=== PATIENT | male | born 1950 | race Caucasian/White ===

== ENCOUNTER 2017-10-01 03:17 | Inpatient (IN) ==
[2017-10-01] MEDS ORDERED: MORPHINE 4 MG/1 ML VIAL IV STA (05:04)
[2017-10-01] MEDS ORDERED: ONDANSETRON 4 MG/2 ML VIAL IV STA (05:04)
[2017-10-01] MEDS ORDERED: MORPHINE 10 MG/1 ML VIAL ONE (05:54)
[2017-10-01 05:58] LABS: Basophils % 0.5 % (0.0-0.8); Immature Granulocytes % 0.5 %; Immature Granulocytes Absolute 0.01 #; Lymphocytes # 0.4 10*3/uL (1.4-4.0); Lymphocytes % 17.6 % (21.2-54.2); Mean Corpuscular HGB Conc 34.2 GM/DL (32-36); Mean Corpuscular Hemoglobin 30 PG (27-34); Mean Corpuscular Volume 87.8 FL (87-102); Mean Platelet Volume 10.3 FL (9.6-12.0); Monocytes # 0.3 10*3/uL (0.11-0.8); Monocytes % 14.8 % (1.7-12.7); Neutrophils # 1.4 10*3/uL (1.4-7.4); Neutrophils % 66.6 % (38.7-73.9); Platelet Count 103 T/CUMM (130-400); Red Blood Count 4.33 MC/CUMM (3.8-5.5); Red Cell Distribution Width 13.1 % (9.3-17.3); White Blood Count 2.2 T/CUMM (4-12)
[2017-10-01 06:32] LABS: Band Neutrophils 5 % (0-10); Hypochromasia 1+; Lymphocytes 18 % (20-55); Ovalocytes Slight; Platelet Estimate Decreased; Segmented Neutrophils 65 % (50-85); Total Cells Counted 100
[2017-10-01 06:47] LABS: Alanine Aminotransferase 12 U/L (16-61); Albumin 3.1 G/DL (3.4-5.0); Alkaline Phosphatase 94 U/L (45-117); Aspartate Amino Transferase 15 U/L (0-37); Blood Urea Nitrogen 11 MG/DL (7-18); Calcium 8.7 MG/DL (8.5-10.1); Glucose 125 MG/DL (74-106); Osmolality,Calculated 272.8 MOS/KG (273-304); Potassium 3.5 MMOL/L (3.5-5.1); Sodium 137 MMOL/L (136-145); Total Protein 7.2 G/DL (6.4-8.3); Troponin I Only < 0.015 NG/ML (0.00-0.045)
[2017-10-01] MEDS ORDERED: MORPHINE 4 MG/1 ML VIAL IV PRN (08:17)
[2017-10-01] MEDS ORDERED: PROMETHAZINE 25 MG TABLET PO PRN (09:00)
[2017-10-01] MEDS: PANTOPRAZOLE 40 MG VIAL IV SCH ×2 (10:18→19:37)
[2017-10-01] MEDS: MORPHINE ER 15 MG TABLET PO SCH ×2 (10:18→20:38)
[2017-10-01] MEDS: SODIUM CHLORIDE 0.45% 1,000 ML IV SCH ×2 (10:34→20:39)
[2017-10-01 11:23] LABS: Folate 7.6 NG/ML (5.4-24.0); Vitamin B12 265 PG/ML (211-911)
[2017-10-01 11:25] LABS: Basophils % 0.5 % (0.0-0.8); Hematocrit 36.9 VOL% (42.0-52.0); Hemoglobin 12.7 GM/DL (14.0-18.0); Lymphocytes # 0.4 10*3/uL (1.4-4.0); Lymphocytes % 18.4 % (21.2-54.2); Mean Corpuscular HGB Conc 34.4 GM/DL (32-36); Mean Corpuscular Hemoglobin 30 PG (27-34); Mean Corpuscular Volume 88.3 FL (87-102); Mean Platelet Volume 10.2 FL (9.6-12.0); Monocytes # 0.3 10*3/uL (0.11-0.8); Monocytes % 14.9 % (1.7-12.7); Neutrophils # 1.3 10*3/uL (1.4-7.4); Neutrophils % 66.2 % (38.7-73.9); Platelet Count 108 T/CUMM (130-400); Red Blood Count 4.18 MC/CUMM (3.8-5.5); Red Cell Distribution Width 13.5 % (9.3-17.3)
[2017-10-01 12:38] LABS: Sedimentation Rate-Westergren 92 MM/HR (0-20)
[2017-10-01 12:54] LABS: Hemoglobin A1 (Alkaline) 97.5 % (96.5-98.5); Hemoglobin A2 (Alkaline) 2.5 % (1.5-3.5)
[2017-10-01] MEDS: ONDANSETRON 4 MG/2 ML VIAL IV PRN ×2 (13:39→19:36)
[2017-10-02 00:21] LABS: Apearance,Urine Slightly Hazy (Clear); Bilirubin,Urine Negative (Negative); Blood, Urine Small mg/dL (Negative); Glucose,Urine (UA) Negative (Negative); Ketones,Urine 5 mg/dL (Negative); Mucus,Urine Occasional /LPF (Occasional); Nitrite,Urine Negative (Negative); Protein,Urine 30 MG/DL; RBC,Urine <1 /HPF (0-4); Urine Color Amber (Yellow); Urine Specific Gravity 1.036 (1.001-1.035); Urine Urobilinogen < 2.0 EU/DL (0.2-1.0)
[2017-10-02 00:37] LABS: Barbiturates Screen,Urine Negative (Negative); Benzodiazepines Screen,Urine Negative (Negative); Cannabinoid Screen,Urine Negative (Negative); Opiate Screen,Urine Positive (Negative); Phencyclidine Screen,Urine Negative (Negative)
[2017-10-02] MEDS: ONDANSETRON 4 MG/2 ML VIAL IV PRN (06:09)
[2017-10-02] MEDS: HYDROmorphone 2 MG/1 ML VIAL IV PRN ×2 (06:10→14:48)
[2017-10-02] MEDS: SODIUM CHLORIDE 0.45% 1,000 ML IV SCH (06:11)
[2017-10-02 06:17] LABS: Eosinophils % 0.5 % (0.00-10.9); Hematocrit 31.3 VOL% (42.0-52.0); Hemoglobin 10.3 GM/DL (14.0-18.0); Lymphocytes # 0.4 10*3/uL (1.4-4.0); Lymphocytes % 21.5 % (21.2-54.2); Mean Corpuscular HGB Conc 32.9 GM/DL (32-36); Mean Corpuscular Hemoglobin 30 PG (27-34); Mean Corpuscular Volume 91.3 FL (87-102); Mean Platelet Volume 10.9 FL (9.6-12.0); Monocytes # 0.3 10*3/uL (0.11-0.8); Monocytes % 15.9 % (1.7-12.7); Neutrophils # 1.2 10*3/uL (1.4-7.4); Neutrophils % 62.1 % (38.7-73.9); Platelet Count 92 T/CUMM (130-400); Red Blood Count 3.43 MC/CUMM (3.8-5.5); Red Cell Distribution Width 13.4 % (9.3-17.3)
[2017-10-02 06:35] LABS: Hypochromasia 1+; Microcytosis 1+; Platelet Estimate Decreased
[2017-10-02 07:06] LABS: Calcium 7.7 MG/DL (8.5-10.1); Osmolality,Calculated 274.7 MOS/KG (273-304); Potassium 3.8 MMOL/L (3.5-5.1)
[2017-10-02 07:14] LABS: Risk Ratio 4.09; VLDL CHOLESTEROL 19.2 MG/DL
[2017-10-02] MEDS ORDERED: BUDESONIDE 0.5 MG/2 ML NEB RESP TX SCH (07:50)
[2017-10-02] MEDS ORDERED: LIDOCAINE 1% 5 ML VIAL ONE (09:00)
[2017-10-02] MEDS: MORPHINE ER 15 MG TABLET PO SCH ×2 (09:00→20:38)
[2017-10-02] MEDS ORDERED: PROPOFOL 200 MG/20 ML VIAL IV ONE (09:00)
[2017-10-02] MEDS: PANTOPRAZOLE 40 MG VIAL IV SCH ×2 (10:02→20:39)
[2017-10-02] MEDS: ALBUTEROL/IPRATROPIUM 3 ML NEB RESP TX PRN (20:38)
[2017-10-02] MEDS: IRON (CARBONYL) 45 MG TABLET PO SCH (20:38)
[2017-10-03] MEDS: ALBUTEROL/IPRATROPIUM 3 ML NEB RESP TX PRN (03:12)
[2017-10-03] MEDS: SODIUM CHLORIDE 0.45% 1,000 ML IV SCH (03:25)
[2017-10-03] MEDS: PANTOPRAZOLE 40 MG VIAL IV SCH (10:16)
[2017-10-03] MEDS: IRON (CARBONYL) 45 MG TABLET PO SCH (10:16)
[2017-10-03] MEDS: MORPHINE ER 15 MG TABLET PO SCH (10:24)
[2017-10-03 11:57] VITALS: BP 140/80
== END 2017-10-03 12:56 | disposition home or self-care (01) | DRG 380 ==
LOC: EDUNIT# → N.ED 03:17 → N.EDINP 07:56 → N.3E 09:31
PROVIDERS: ADMIT Internal Medicine; ATTEND Internal Medicine

== ENCOUNTER 2017-11-26 11:44 | Inpatient (IN) ==
[2017-12-04 12:12] VITALS: BP 109/68
== END 2017-12-04 15:10 | disposition home or self-care (01) | DRG 808 ==
LOC: N.2E 14:22 → SUATTDRO 14:22 → N.2E 12-02 07:24
PROVIDERS: ADMIT Internal Medicine; ATTEND Internal Medicine

== ENCOUNTER 2018-05-29 18:37 | Inpatient (IN) ==
[2018-05-29] MEDS ORDERED: SODIUM CHLORIDE 0.9% 1,000 ML IV STA ×2 (19:44→21:50)
[2018-05-29] MEDS ORDERED: CEFEPIME 2,000 MG in SODIUM CHLORIDE 0.9% 100 ML IV STA (20:43)
[2018-05-29] MEDS ORDERED: VANCOMYCIN INJ 1,000 MG in SODIUM CHLORIDE 0.9% 250 ML IV STA (20:44)
[2018-05-29 20:49] LABS: Basophils % 0.1 % (0.0-0.8); Hematocrit 37.7 VOL% (42.0-52.0); Hemoglobin 12.1 GM/DL (14.0-18.0); Immature Granulocytes % 0.7 %; Lymphocytes # 0.3 10*3/uL (1.4-4.0); Lymphocytes % 1.9 % (21.2-54.2); Mean Corpuscular HGB Conc 32.1 GM/DL (32-36); Mean Corpuscular Hemoglobin 28 PG (27-34); Mean Corpuscular Volume 88.3 FL (87-102); Monocytes # 0.3 10*3/uL (0.11-0.8); Monocytes % 1.9 % (1.7-12.7); Neutrophils # 13.5 10*3/uL (1.4-7.4); Neutrophils % 95.4 % (38.7-73.9); Platelet Count 186 T/CUMM (130-400); Red Blood Count 4.27 MC/CUMM (3.8-5.5); Red Cell Distribution Width 14.1 % (9.3-17.3); White Blood Count 14.2 T/CUMM (4-12)
[2018-05-29 20:58] LABS: INR 1.1; PT Patient Result 11.6 SECS; Partial Thromboplastin Time 32.9 SECS (0-40)
[2018-05-29 21:09] LABS: Albumin 2.3 G/DL (3.4-5.0); Bilirubin,Total 1.8 MG/DL (0.2-1.0); Calcium 7.9 MG/DL (8.5-10.1); Osmolality,Calculated 277.5 MOS/KG (273-304); Potassium 5.3 MMOL/L (3.5-5.1); Total Protein 6.1 G/DL (6.4-8.3)
[2018-05-29 21:48] LABS: Band Neutrophils 31 % (0-10); Lymphocytes 2 % (20-55); Platelet Estimate Normal; Segmented Neutrophils 66 % (50-85)
[2018-05-29 21:49] LABS: Anisocytosis Slight; Macrocytosis Slight
[2018-05-29 21:50] LABS: Ovalocytes Few; Tear Drop Cells Few
[2018-05-29 21:52] LABS: Polychromasia Few; Total Cells Counted 100
[2018-05-29 22:08] LABS: Apearance,Urine CLOUDY (Clear); Bacteria,Urine Occasional /HPF (Few); Bilirubin,Urine Negative (Negative); Blood, Urine Large mg/dL (Negative); Glucose,Urine (UA) Negative (Negative); Hyaline Casts,Urine 55 /LPF (0-3); Ketones,Urine Negative (Negative); Mucus,Urine Occasional /LPF (Occasional); Nitrite,Urine Negative (Negative); Protein,Urine 30 MG/DL; RBC,Urine 3 /HPF (0-4); Squamous Epithelial Cell,Urine Occasional /HPF (0-10); Urine Color Amber (Yellow); Urine Specific Gravity 1.018 (1.001-1.035); Urine Urobilinogen < 2.0 EU/DL (0.2-1.0); WBC,Urine 4 /HPF (0-6)
[2018-05-29 22:16] LABS: Barbiturates Screen,Urine Negative (Negative); Benzodiazepines Screen,Urine Negative (Negative); Cannabinoid Screen,Urine Negative (Negative); Opiate Screen,Urine Positive (Negative); Phencyclidine Screen,Urine Negative (Negative)
[2018-05-29] MEDS ORDERED: ALBUTEROL 2.5 MG/3 ML NEB RESP TX PRN (22:55)
[2018-05-29] MEDS ORDERED: methylPREDNISolone SOD SUC 40 MG/1 ML VIAL IV SCH (23:00)
[2018-05-30] MEDS ORDERED: DEXTROSE 50% 25 GM/50 ML VIAL IV STA (00:26)
[2018-05-30] MEDS ORDERED: DEXTROSE 50% 25 GM/50 ML SYRINGE IV ONE (00:30)
[2018-05-30] MEDS: PIPERACILLIN/TAZOBACTAM 3,375 MG in SODIUM CHLORIDE 0.9% 100 ML IV SCH ×2 (01:32→12:46)
[2018-05-30] MEDS: MORPHINE ER 15 MG TABLET PO SCH ×3 (01:32→21:23)
[2018-05-30] MEDS: LEVOFLOXACIN INJ 750 MG in PREMIX 1 EACH IV SCH (01:32)
[2018-05-30] MEDS: DEXTROSE 5% NACL 0.45% 1,000 ML IV SCH ×2 (01:33→15:14)
[2018-05-30] MEDS: ALBUTEROL/IPRATROPIUM 3 ML NEB RESP TX SCH ×4 (02:20→19:13)
[2018-05-30 07:08] LABS: Basophils % 0.1 % (0.0-0.8); Hematocrit 32.6 VOL% (42.0-52.0); Hemoglobin 10.6 GM/DL (14.0-18.0); Immature Granulocytes % 0.4 %; Immature Granulocytes Absolute 0.04 #; Lymphocytes # 0.1 10*3/uL (1.4-4.0); Lymphocytes % 1.3 % (21.2-54.2); Mean Corpuscular HGB Conc 32.5 GM/DL (32-36); Mean Corpuscular Hemoglobin 29 PG (27-34); Mean Corpuscular Volume 89.1 FL (87-102); Mean Platelet Volume 10.5 FL (9.6-12.0); Monocytes # 0.2 10*3/uL (0.11-0.8); Neutrophils # 9.1 10*3/uL (1.4-7.4); Neutrophils % 96.2 % (38.7-73.9); Platelet Count 136 T/CUMM (130-400); Red Blood Count 3.66 MC/CUMM (3.8-5.5); Red Cell Distribution Width 14.1 % (9.3-17.3); White Blood Count 9.5 T/CUMM (4-12)
[2018-05-30 07:27] LABS: Albumin 1.7 G/DL (3.4-5.0); Bilirubin,Total 1.1 MG/DL (0.2-1.0); Calcium 7.6 MG/DL (8.5-10.1); Osmolality,Calculated 272.5 MOS/KG (273-304); Potassium 5.2 MMOL/L (3.5-5.1); Total Protein 5.6 G/DL (6.4-8.3)
[2018-05-30 07:28] LABS: Band Neutrophils 54 % (0-10); Platelet Estimate Adequate; Segmented Neutrophils 45 % (50-85); Total Cells Counted 100
[2018-05-30 07:29] LABS: Anisocytosis 1+
[2018-05-30] MEDS: PANTOPRAZOLE 40 MG TABLET PO SCH (09:06)
[2018-05-30] MEDS: ENOXAPARIN 30 MG/0.3 ML SYRINGE SUBCUT SCH (09:07)
[2018-05-30] MEDS: methylPREDNISolone SOD SUC 40 MG/1 ML VIAL IV SCH ×2 (09:08→16:29)
[2018-05-31] MEDS: ALBUTEROL/IPRATROPIUM 3 ML NEB RESP TX SCH ×5 (00:59→23:51)
[2018-05-31] MEDS: PIPERACILLIN/TAZOBACTAM 3,375 MG in SODIUM CHLORIDE 0.9% 100 ML IV SCH ×2 (01:46→14:58)
[2018-05-31] MEDS: methylPREDNISolone SOD SUC 40 MG/1 ML VIAL IV SCH ×3 (02:00→16:35)
[2018-05-31] MEDS: PANTOPRAZOLE 40 MG TABLET PO SCH (08:51)
[2018-05-31] MEDS: ENOXAPARIN 30 MG/0.3 ML SYRINGE SUBCUT SCH (08:51)
[2018-05-31] MEDS: MORPHINE ER 15 MG TABLET PO SCH ×2 (08:51→21:27)
[2018-05-31] MEDS: ONDANSETRON 4 MG/2 ML VIAL IV PRN (17:37)
[2018-05-31] MEDS: MELATONIN 3 MG TABLET PO SCH (21:27)
[2018-05-31] MEDS: DEXTROSE 5% NACL 0.45% 1,000 ML IV SCH (22:43)
[2018-05-31] MEDS: LEVOFLOXACIN INJ 750 MG in PREMIX 1 EACH IV SCH (23:02)
[2018-06-01] MEDS: PIPERACILLIN/TAZOBACTAM 3,375 MG in SODIUM CHLORIDE 0.9% 100 ML IV SCH ×2 (01:20→12:34)
[2018-06-01] MEDS: methylPREDNISolone SOD SUC 40 MG/1 ML VIAL IV SCH ×3 (01:20→18:23)
[2018-06-01] MEDS: DEXTROSE 5% NACL 0.45% 1,000 ML IV SCH ×2 (01:24→21:09)
[2018-06-01] MEDS: ALBUTEROL/IPRATROPIUM 3 ML NEB RESP TX SCH ×3 (06:59→19:39)
[2018-06-01] MEDS: PANTOPRAZOLE 40 MG TABLET PO SCH (09:16)
[2018-06-01] MEDS: MORPHINE ER 15 MG TABLET PO SCH ×2 (09:16→21:05)
[2018-06-01] MEDS: ENOXAPARIN 30 MG/0.3 ML SYRINGE SUBCUT SCH (09:17)
[2018-06-01] MEDS: MELATONIN 3 MG TABLET PO SCH (21:05)
[2018-06-02] MEDS: ALBUTEROL/IPRATROPIUM 3 ML NEB RESP TX SCH ×4 (00:03→20:19)
[2018-06-02] MEDS: PIPERACILLIN/TAZOBACTAM 3,375 MG in SODIUM CHLORIDE 0.9% 100 ML IV SCH ×2 (01:31→13:44)
[2018-06-02] MEDS: methylPREDNISolone SOD SUC 40 MG/1 ML VIAL IV SCH ×3 (01:31→18:48)
[2018-06-02] MEDS: ENOXAPARIN 30 MG/0.3 ML SYRINGE SUBCUT SCH (09:18)
[2018-06-02] MEDS: PANTOPRAZOLE 40 MG TABLET PO SCH (09:18)
[2018-06-02] MEDS: MORPHINE ER 15 MG TABLET PO SCH ×2 (09:18→20:12)
[2018-06-02] MEDS: DEXTROSE 5% NACL 0.45% 1,000 ML IV SCH (13:26)
[2018-06-02] MEDS: MELATONIN 3 MG TABLET PO SCH (20:12)
[2018-06-03] MEDS: DEXTROSE 5% NACL 0.45% 1,000 ML IV SCH ×2 (00:13→15:36)
[2018-06-03] MEDS: methylPREDNISolone SOD SUC 40 MG/1 ML VIAL IV SCH ×3 (00:14→16:53)
[2018-06-03] MEDS: LEVOFLOXACIN INJ 750 MG in PREMIX 1 EACH IV SCH (00:17)
[2018-06-03] MEDS: PIPERACILLIN/TAZOBACTAM 3,375 MG in SODIUM CHLORIDE 0.9% 100 ML IV SCH ×2 (02:08→13:07)
[2018-06-03] MEDS: ALBUTEROL/IPRATROPIUM 3 ML NEB RESP TX SCH ×4 (02:15→19:01)
[2018-06-03] MEDS ORDERED: TUBERCULIN SKIN TEST 0.1 ML SYRINGE INTRADERM ONE (09:00)
[2018-06-03] MEDS: MORPHINE ER 15 MG TABLET PO SCH ×2 (09:23→20:04)
[2018-06-03] MEDS: ENOXAPARIN 30 MG/0.3 ML SYRINGE SUBCUT SCH (09:24)
[2018-06-03] MEDS: PANTOPRAZOLE 40 MG TABLET PO SCH (09:24)
[2018-06-03] MEDS ORDERED: NYSTATIN 500,000 UNIT/5 ML UDCUP SWISH/SWAL SCH (17:00)
[2018-06-03] MEDS: NYSTATIN 500,000 UNIT/5 ML UDCUP SWISH/SWAL SCH ×2 (17:24→23:16)
[2018-06-03] MEDS: MELATONIN 3 MG TABLET PO SCH (20:04)
[2018-06-03] MEDS: BENZOCAINE/MENTHOL LOZENGE 18/BOX PO PRN (22:47)
[2018-06-04] MEDS: ALBUTEROL/IPRATROPIUM 3 ML NEB RESP TX SCH ×4 (00:33→19:06)
[2018-06-04] MEDS: PIPERACILLIN/TAZOBACTAM 3,375 MG in SODIUM CHLORIDE 0.9% 100 ML IV SCH ×2 (01:45→17:00)
[2018-06-04] MEDS: methylPREDNISolone SOD SUC 40 MG/1 ML VIAL IV SCH ×3 (01:45→17:00)
[2018-06-04] MEDS: BENZOCAINE/MENTHOL LOZENGE 18/BOX PO PRN ×2 (05:15→09:38)
[2018-06-04] MEDS: ENOXAPARIN 30 MG/0.3 ML SYRINGE SUBCUT SCH (09:30)
[2018-06-04] MEDS: MORPHINE ER 15 MG TABLET PO SCH ×2 (09:30→21:33)
[2018-06-04] MEDS: PANTOPRAZOLE 40 MG TABLET PO SCH (09:31)
[2018-06-04] MEDS ORDERED: NYSTATIN 500,000 UNIT/5 ML UDCUP SWISH/SWAL SCH (13:00)
[2018-06-04] MEDS: NYSTATIN 500,000 UNIT/5 ML UDCUP SWISH/SWAL SCH ×3 (16:48→23:08)
[2018-06-04] MEDS: DEXTROSE 5% NACL 0.45% 1,000 ML IV SCH (17:02)
[2018-06-04] MEDS: MELATONIN 3 MG TABLET PO SCH (21:26)
[2018-06-05] MEDS: ALBUTEROL/IPRATROPIUM 3 ML NEB RESP TX SCH ×5 (00:35→23:52)
[2018-06-05] MEDS: LEVOFLOXACIN INJ 750 MG in PREMIX 1 EACH IV SCH (01:00)
[2018-06-05] MEDS: methylPREDNISolone SOD SUC 40 MG/1 ML VIAL IV SCH ×3 (02:18→19:23)
[2018-06-05] MEDS: PIPERACILLIN/TAZOBACTAM 3,375 MG in SODIUM CHLORIDE 0.9% 100 ML IV SCH ×2 (02:21→16:07)
[2018-06-05] MEDS: BENZOCAINE/MENTHOL LOZENGE 18/BOX PO PRN (02:24)
[2018-06-05 05:54] LABS: Basophils % 0.2 % (0.0-0.8); Hematocrit 28.4 VOL% (42.0-52.0); Hemoglobin 8.9 GM/DL (14.0-18.0); Immature Granulocytes % 0.5 %; Immature Granulocytes Absolute 0.03 #; Lymphocytes # 0.1 10*3/uL (1.4-4.0); Lymphocytes % 2.2 % (21.2-54.2); Mean Corpuscular HGB Conc 31.3 GM/DL (32-36); Mean Corpuscular Hemoglobin 29 PG (27-34); Mean Corpuscular Volume 91.3 FL (87-102); Mean Platelet Volume 10.4 FL (9.6-12.0); Monocytes # 0.2 10*3/uL (0.11-0.8); Monocytes % 2.5 % (1.7-12.7); Neutrophils % 94.6 % (38.7-73.9); Platelet Count 89 T/CUMM (130-400); Red Blood Count 3.11 MC/CUMM (3.8-5.5); Red Cell Distribution Width 14.2 % (9.3-17.3); White Blood Count 6.4 T/CUMM (4-12)
[2018-06-05 06:26] LABS: Lymphocytes 1 % (20-55); Segmented Neutrophils 98 % (50-85); Total Cells Counted 100
[2018-06-05 06:27] LABS: Hypochromasia 1+; Microcytosis 1+
[2018-06-05 06:28] LABS: Platelet Estimate Decreased
[2018-06-05] MEDS: ONDANSETRON 4 MG/2 ML VIAL IV PRN ×3 (07:16→20:04)
[2018-06-05] MEDS ORDERED: ceFAZolin 1,000 MG in SYRINGE 1 EACH IV ONE (08:00)
[2018-06-05] MEDS ORDERED: MIDAZOLAM 10 MG/2 ML VIAL IV ONE (08:30)
[2018-06-05] MEDS ORDERED: fentaNYL 100 MCG/2 ML VIAL IV ONE (08:30)
[2018-06-05] MEDS ORDERED: HEPARIN/NACL 0.9% 2 UNITS/ML 2,000 ML IV ONE (12:50)
[2018-06-05] MEDS: NYSTATIN 500,000 UNIT/5 ML UDCUP SWISH/SWAL SCH ×3 (13:10→20:16)
[2018-06-05] MEDS: PANTOPRAZOLE 40 MG TABLET PO SCH (13:11)
[2018-06-05] MEDS: ENOXAPARIN 30 MG/0.3 ML SYRINGE SUBCUT SCH (13:11)
[2018-06-05] MEDS: MORPHINE ER 15 MG TABLET PO SCH ×2 (13:12→20:04)
[2018-06-05] MEDS: DEXTROSE 5% NACL 0.45% 1,000 ML IV SCH ×2 (13:12→23:27)
[2018-06-05] MEDS ORDERED: HEPARIN 5,000 UNIT/1 ML VIAL ONE (13:15)
[2018-06-05] MEDS ORDERED: fentaNYL 100 MCG/2 ML VIAL ONE (13:15)
[2018-06-05] MEDS ORDERED: MIDAZOLAM 2 MG/2 ML VIAL ONE (13:15)
[2018-06-05] MEDS ORDERED: ONDANSETRON 4 MG/2 ML VIAL ONE (14:45)
[2018-06-05] MEDS ORDERED: CLOPIDOGREL 75 MG TABLET PO ONE (15:19)
[2018-06-05 15:37] LABS: Apearance,Urine CLEAR (Clear); Bilirubin,Urine Negative (Negative); Blood, Urine Moderate mg/dL (Negative); Glucose,Urine (UA) Negative (Negative); Ketones,Urine Negative (Negative); Nitrite,Urine Negative (Negative); Protein,Urine Negative; Urine Color Yellow (Yellow); Urine Specific Gravity 1.023 (1.001-1.035); Urine Urobilinogen < 2.0 EU/DL (0.2-1.0); WBC,Urine 1 /HPF (0-6)
[2018-06-05] MEDS: MELATONIN 3 MG TABLET PO SCH (20:04)
[2018-06-06] MEDS: methylPREDNISolone SOD SUC 40 MG/1 ML VIAL IV SCH (01:45)
[2018-06-06] MEDS: PIPERACILLIN/TAZOBACTAM 3,375 MG in SODIUM CHLORIDE 0.9% 100 ML IV SCH (01:47)
[2018-06-06] MEDS: BENZOCAINE/MENTHOL LOZENGE 18/BOX PO PRN (05:37)
[2018-06-06 06:45] LABS: Calcium 7.9 MG/DL (8.5-10.1); Osmolality,Calculated 272.1 MOS/KG (273-304); Potassium 4.1 MMOL/L (3.5-5.1)
[2018-06-06] MEDS: ALBUTEROL/IPRATROPIUM 3 ML NEB RESP TX SCH ×3 (07:20→19:56)
[2018-06-06] MEDS ORDERED: LIDOCAINE 1% 20 ML VIAL ONE (09:36)
[2018-06-06] MEDS ORDERED: HEPARIN 5,000 UNIT/1 ML VIAL ONE (09:36)
[2018-06-06] MEDS ORDERED: THROMBIN TOPICAL (RECOMBINANT) 5,000 UNIT VIAL TOP ONE (09:36)
[2018-06-06] MEDS ORDERED: VANCOMYCIN 500 MG VIAL ONE (09:36)
[2018-06-06] MEDS: ENOXAPARIN 30 MG/0.3 ML SYRINGE SUBCUT SCH (09:39)
[2018-06-06] MEDS: PANTOPRAZOLE 40 MG TABLET PO SCH (09:40)
[2018-06-06] MEDS: MORPHINE ER 15 MG TABLET PO SCH (09:40)
[2018-06-06] MEDS: NYSTATIN 500,000 UNIT/5 ML UDCUP SWISH/SWAL SCH ×4 (09:40→23:10)
[2018-06-06] MEDS ORDERED: HEPARIN 10,000 UNIT/10 ML VIAL ONE (10:00)
[2018-06-06] MEDS ORDERED: ceFAZolin 1,000 MG VIAL ONE (10:38)
[2018-06-06] MEDS ORDERED: TISSUE ADHESIVE 1 EACH APPLICATOR TOP ONE (11:55)
[2018-06-06] MEDS: MEPERIDINE 25 MG/1 ML VIAL IV PRN ×2 (12:50→13:20)
[2018-06-06] MEDS ORDERED: HYDROmorphone 2 MG/1 ML VIAL IV PRN ×2 (12:50→12:57)
[2018-06-06] MEDS ORDERED: MEPERIDINE 25 MG/1 ML VIAL ONE ×2 (12:54→13:17)
[2018-06-06] MEDS ORDERED: ONDANSETRON 4 MG/2 ML VIAL ONE ×2 (12:54→13:40)
[2018-06-06] MEDS ORDERED: ONDANSETRON 4 MG/2 ML VIAL IV PRN (12:57)
[2018-06-06] MEDS ORDERED: PROMETHAZINE INJ 25 MG in SODIUM CHLORIDE 0.9% 50 ML IV PRN (12:57)
[2018-06-06] MEDS ORDERED: SEVOFLURANE 1 UNIT/15 MINUTE INH ONE (13:39)
[2018-06-06] MEDS ORDERED: PROPOFOL 200 MG/20 ML VIAL IV ONE (13:39)
[2018-06-06] MEDS ORDERED: KETOROLAC 30 MG/1 ML VIAL ONE (13:40)
[2018-06-06] MEDS ORDERED: PROTAMINE SULFATE 50 MG/5 ML VIAL IV ONE (13:40)
[2018-06-06] MEDS ORDERED: PHENYLEPHRINE 1 MG/10 ML SYRINGE IV ONE (13:40)
[2018-06-06] MEDS ORDERED: ETOMIDATE 40 MG/20 ML VIAL IV ONE (13:40)
[2018-06-06] MEDS ORDERED: fentaNYL 100 MCG/2 ML VIAL ONE (13:40)
[2018-06-06] MEDS ORDERED: LACTATED RINGERS 1,000 ML IV ONE (13:40)
[2018-06-06] MEDS ORDERED: ceFAZolin 1,000 MG in SYRINGE 1 EACH IV ONE (15:15)
[2018-06-06] MEDS: KETOROLAC 10 MG TABLET PO SCH (17:26)
[2018-06-06] MEDS: POTASSIUM CHLORIDE INJ 10 MEQ in LACTATED RINGERS 1,000 ML IV SCH (17:26)
[2018-06-06] MEDS: MELATONIN 3 MG TABLET PO SCH ×2 (19:28→23:10)
[2018-06-06] MEDS: DEXTROSE 5% NACL 0.45% 1,000 ML IV SCH (23:11)
[2018-06-07] MEDS: ALBUTEROL/IPRATROPIUM 3 ML NEB RESP TX SCH ×4 (00:47→19:15)
[2018-06-07] MEDS: KETOROLAC 10 MG TABLET PO SCH ×4 (01:56→18:03)
[2018-06-07] MEDS: HYDROmorphone 2 MG/1 ML VIAL IV PRN ×3 (03:19→20:10)
[2018-06-07] MEDS: ONDANSETRON 4 MG/2 ML VIAL IV PRN ×2 (03:20→20:09)
[2018-06-07 06:08] LABS: Eosinophils % 0.4 % (0.00-10.9); Hematocrit 26.4 VOL% (42.0-52.0); Hemoglobin 8.1 GM/DL (14.0-18.0); Immature Granulocytes % 0.8 %; Immature Granulocytes Absolute 0.02 #; Lymphocytes # 0.3 10*3/uL (1.4-4.0); Lymphocytes % 9.8 % (21.2-54.2); Mean Corpuscular HGB Conc 30.7 GM/DL (32-36); Mean Corpuscular Hemoglobin 29 PG (27-34); Mean Corpuscular Volume 93.3 FL (87-102); Mean Platelet Volume 10.3 FL (9.6-12.0); Monocytes # 0.1 10*3/uL (0.11-0.8); Neutrophils # 2.3 10*3/uL (1.4-7.4); Red Blood Count 2.83 MC/CUMM (3.8-5.5); Red Cell Distribution Width 13.7 % (9.3-17.3); White Blood Count 2.7 T/CUMM (4-12)
[2018-06-07 06:13] LABS: Platelet Count 80 T/CUMM (130-400)
[2018-06-07 06:29] LABS: Calcium 7.5 MG/DL (8.5-10.1)
[2018-06-07 06:44] LABS: Hypochromasia 1+; Microcytosis Slight; Ovalocytes Slight; Platelet Estimate Decreased
[2018-06-07 07:49] LABS: HIV Antigen/Antibody Result Nonreactive (Nonreactive)
[2018-06-07] MEDS: PANTOPRAZOLE 40 MG TABLET PO SCH (09:17)
[2018-06-07] MEDS: POTASSIUM CHLORIDE INJ 10 MEQ in LACTATED RINGERS 1,000 ML IV SCH (09:18)
[2018-06-07] MEDS: CLOTRIMAZOLE 10 MG TROCHE PO SCH ×4 (09:18→20:01)
[2018-06-07] MEDS: ENOXAPARIN 30 MG/0.3 ML SYRINGE SUBCUT SCH (09:19)
[2018-06-07 16:14] LABS: Hematocrit 26.2 VOL% (42.0-52.0); Hemoglobin 8.1 GM/DL (14.0-18.0); Immature Granulocytes % 0.3 %; Immature Granulocytes Absolute 0.01 #; Lymphocytes # 0.2 10*3/uL (1.4-4.0); Mean Corpuscular HGB Conc 30.9 GM/DL (32-36); Mean Corpuscular Hemoglobin 29 PG (27-34); Mean Corpuscular Volume 92.3 FL (87-102); Mean Platelet Volume 10.3 FL (9.6-12.0); Monocytes # 0.1 10*3/uL (0.11-0.8); Monocytes % 3.4 % (1.7-12.7); Neutrophils # 2.6 10*3/uL (1.4-7.4); Neutrophils % 88.3 % (38.7-73.9); Red Blood Count 2.84 MC/CUMM (3.8-5.5); Red Cell Distribution Width 13.8 % (9.3-17.3)
[2018-06-07 16:17] LABS: Platelet Count 85 T/CUMM (130-400)
[2018-06-07] MEDS: MELATONIN 3 MG TABLET PO SCH (20:10)
[2018-06-07] MEDS: BENZOCAINE/MENTHOL LOZENGE 18/BOX PO PRN (20:11)
[2018-06-08] MEDS: ALBUTEROL/IPRATROPIUM 3 ML NEB RESP TX SCH ×4 (00:03→20:18)
[2018-06-08] MEDS: HYDROmorphone 2 MG/1 ML VIAL IV PRN (00:05)
[2018-06-08] MEDS: KETOROLAC 10 MG TABLET PO SCH ×4 (01:17→19:06)
[2018-06-08] MEDS: BENZOCAINE/MENTHOL LOZENGE 18/BOX PO PRN (04:38)
[2018-06-08] MEDS: CLOTRIMAZOLE 10 MG TROCHE PO SCH ×6 (05:18→21:59)
[2018-06-08] MEDS: PANTOPRAZOLE 40 MG TABLET PO SCH (08:29)
[2018-06-08] MEDS: ENOXAPARIN 30 MG/0.3 ML SYRINGE SUBCUT SCH (08:30)
[2018-06-08] MEDS ORDERED: FLUCONAZOLE INJ 200 MG in PREMIX 1 EACH IV ONE (08:34)
[2018-06-08] MEDS: MYLANTA/LIDO VISC/DIPH 300 ML BOTTLE SWISH/SWAL PRN ×2 (09:50→15:51)
[2018-06-08] MEDS: MELATONIN 3 MG TABLET PO SCH (20:10)
[2018-06-09] MEDS: KETOROLAC 10 MG TABLET PO SCH ×4 (00:21→17:42)
[2018-06-09] MEDS: ALBUTEROL/IPRATROPIUM 3 ML NEB RESP TX SCH ×4 (00:51→19:26)
[2018-06-09] MEDS: CLOTRIMAZOLE 10 MG TROCHE PO SCH ×8 (05:15→23:03)
[2018-06-09] MEDS: ENOXAPARIN 30 MG/0.3 ML SYRINGE SUBCUT SCH (08:15)
[2018-06-09] MEDS: PANTOPRAZOLE 40 MG TABLET PO SCH (08:15)
[2018-06-09] MEDS ORDERED: TRIAMCINOLONE 0.1% DENTAL PASTE 5 GM TUBE TOP PRN (13:07)
[2018-06-09] MEDS: MYLANTA/LIDO VISC/DIPH 300 ML BOTTLE SWISH/SWAL PRN (16:46)
[2018-06-09] MEDS: NYSTATIN 500,000 UNIT/5 ML UDCUP SWISH/SWAL SCH ×2 (16:53→23:03)
[2018-06-09] MEDS: MELATONIN 3 MG TABLET PO SCH (23:03)
[2018-06-10] MEDS: ALBUTEROL/IPRATROPIUM 3 ML NEB RESP TX SCH ×2 (00:10→07:15)
[2018-06-10] MEDS: KETOROLAC 10 MG TABLET PO SCH ×3 (01:32→11:10)
[2018-06-10] MEDS: CLOTRIMAZOLE 10 MG TROCHE PO SCH ×2 (05:26→09:28)
[2018-06-10 06:54] LABS: Free T4 (Free Thyroxine) 0.76 NG/DL (0.76-1.46); Thyroid Stimulating Hormone 9.5 uIU/ml (0.358-3.74)
[2018-06-10] MEDS: NYSTATIN 500,000 UNIT/5 ML UDCUP SWISH/SWAL SCH (08:05)
[2018-06-10] MEDS: PANTOPRAZOLE 40 MG TABLET PO SCH (08:16)
[2018-06-10] MEDS: ENOXAPARIN 30 MG/0.3 ML SYRINGE SUBCUT SCH (08:16)
[2018-06-10 08:24] VITALS: BP 111/61
[2018-06-10] MEDS ORDERED: CLOPIDOGREL 75 MG TABLET PO SCH (11:30)
== END 2018-06-10 12:11 | DRG 853 ==
LOC: N.ED 18:37 → N.EDINP 22:56 → SUATTDRO 22:56 → N.EDINP 05-30 00:48 → N.CC 05-30 00:59 → N.5E 05-30 15:30
PROVIDERS: ADMIT Hospitalist; ATTEND Internal Medicine

== ENCOUNTER 2018-06-13 16:32 | Inpatient (IN) ==
[2018-06-13] MEDS ORDERED: PANTOPRAZOLE 40 MG VIAL IV STA (17:08)
[2018-06-13] MEDS ORDERED: SODIUM CHLORIDE 0.9% 500 ML IV STA (17:08)
[2018-06-13 17:33] LABS: Eosinophils # 0.1 10*3/uL (0.0-0.87); Eosinophils % 4.1 % (0.00-10.9); Hematocrit 23.6 VOL% (42.0-52.0); Hemoglobin 7.4 GM/DL (14.0-18.0); Lymphocytes # 0.4 10*3/uL (1.4-4.0); Lymphocytes % 21.9 % (21.2-54.2); Mean Corpuscular HGB Conc 31.4 GM/DL (32-36); Mean Corpuscular Hemoglobin 29 PG (27-34); Mean Corpuscular Volume 91.5 FL (87-102); Mean Platelet Volume 9.9 FL (9.6-12.0); Monocytes # 0.1 10*3/uL (0.11-0.8); Monocytes % 7.1 % (1.7-12.7); Neutrophils # 1.3 10*3/uL (1.4-7.4); Neutrophils % 66.9 % (38.7-73.9); Platelet Count 175 T/CUMM (130-400); Red Blood Count 2.58 MC/CUMM (3.8-5.5); Red Cell Distribution Width 14.5 % (9.3-17.3)
[2018-06-13 17:45] LABS: Alanine Aminotransferase 16 U/L (16-61); Albumin 1.5 G/DL (3.4-5.0); Alkaline Phosphatase 117 U/L (45-117); Aspartate Amino Transferase 21 U/L (0-37); Bilirubin,Total < 0.39 MG/DL (0.2-1.0); Blood Urea Nitrogen 13 MG/DL (7-18); Calcium 7.2 MG/DL (8.5-10.1); Glucose 79 MG/DL (74-106); Potassium 4.1 MMOL/L (3.5-5.1); Sodium 136 MMOL/L (136-145); Total Protein 6.1 G/DL (6.4-8.3)
[2018-06-13 18:26] LABS: Anisocytosis Slight; Eosinophils 3 % (0-10); Lymphocytes 7 % (20-55); Microcytosis Slight; Segmented Neutrophils 86 % (50-85); Total Cells Counted 100
[2018-06-13 18:27] LABS: Hypochromasia 1+
[2018-06-13 18:28] LABS: Platelet Estimate Adequate
[2018-06-13] MEDS ORDERED: ACETAMINOPHEN 325 MG TABLET PO PRN (19:51)
[2018-06-13] MEDS ORDERED: SODIUM CHLORIDE 0.9% 1,000 ML IV PRN (20:02)
[2018-06-13 20:32] LABS: Apearance,Urine CLEAR (Clear); Bilirubin,Urine Negative (Negative); Blood, Urine Negative (Negative); Glucose,Urine (UA) Negative (Negative); Ketones,Urine Negative (Negative); Mucus,Urine Occasional /LPF (Occasional); Nitrite,Urine Negative (Negative); Protein,Urine Negative; RBC,Urine 1 /HPF (0-4); Squamous Epithelial Cell,Urine Occasional /HPF (0-10); Urine Color Yellow (Yellow); Urine Specific Gravity 1.015 (1.001-1.035); Urine Urobilinogen < 2.0 EU/DL (0.2-1.0); WBC,Urine 1 /HPF (0-6)
[2018-06-13] MEDS: PANTOPRAZOLE 40 MG VIAL IV SCH (22:05)
[2018-06-14 06:23] LABS: Hematocrit 32.4 VOL% (42.0-52.0); Hemoglobin 10.4 GM/DL (14.0-18.0)
[2018-06-14] MEDS: NYSTATIN 500,000 UNIT/5 ML UDCUP SWISH/SWAL SCH ×3 (08:32→16:10)
[2018-06-14] MEDS ORDERED: MORPHINE ER 15 MG TABLET PO SCH (09:00)
[2018-06-14] MEDS: PANTOPRAZOLE 40 MG VIAL IV SCH (10:12)
[2018-06-14 12:08] LABS: Hematocrit 31.1 VOL% (42.0-52.0)
[2018-06-14 18:17] VITALS: BP 135/64
== END 2018-06-14 17:00 | DRG 811 ==
LOC: EDBD → EDUNIT# → N.ED 16:32 → N.EDINP 19:51 → N.4E 21:00
PROVIDERS: ADMIT Family Medicine; ATTEND Family Medicine

== ENCOUNTER 2018-07-23 06:06 | Observation (INO) ==
[2018-07-23] MEDS ORDERED: ACETAMINOPHEN 325 MG TABLET PO PRN (08:09)
[2018-07-23] MEDS ORDERED: ALBUTEROL 2.5 MG/3 ML NEB RESP TX PRN (08:12)
[2018-07-23 08:47] LABS: Basophils % 0.3 % (0.0-0.8); Hematocrit 34.1 VOL% (42.0-52.0); Hemoglobin 10.6 GM/DL (14.0-18.0); Immature Granulocytes Absolute 0.03 #; Lymphocytes # 0.4 10*3/uL (1.4-4.0); Lymphocytes % 11.4 % (21.2-54.2); Mean Corpuscular HGB Conc 31.1 GM/DL (32-36); Mean Corpuscular Hemoglobin 29 PG (27-34); Mean Corpuscular Volume 94.5 FL (87-102); Mean Platelet Volume 9.2 FL (9.6-12.0); Monocytes # 0.2 10*3/uL (0.11-0.8); Monocytes % 6.2 % (1.7-12.7); Neutrophils # 2.5 10*3/uL (1.4-7.4); Neutrophils % 81.1 % (38.7-73.9); Platelet Count 212 T/CUMM (130-400); Red Blood Count 3.61 MC/CUMM (3.8-5.5); Red Cell Distribution Width 16.7 % (9.3-17.3); White Blood Count 3.1 T/CUMM (4-12)
[2018-07-23 09:08] LABS: Band Neutrophils 11 % (0-10); Lymphocytes 16 % (20-55); Platelet Estimate Adequate; Segmented Neutrophils 66 % (50-85); Total Cells Counted 100
[2018-07-23 09:09] LABS: Hypochromasia 1+; Microcytosis Slight
[2018-07-23 09:10] LABS: Albumin 2.2 G/DL (3.4-5.0); Bilirubin,Total 0.5 MG/DL (0.2-1.0); Calcium 9.5 MG/DL (8.5-10.1); Osmolality,Calculated 282.3 MOS/KG (273-304); Total Protein 7.7 G/DL (6.4-8.3)
[2018-07-23 09:17] LABS: Thyroid Stimulating Hormone 1.08 uIU/ml (0.358-3.74)
[2018-07-23] MEDS: methylPREDNISolone SOD SUC 125 MG/2 ML VIAL IV SCH ×2 (09:30→17:25)
[2018-07-23] MEDS ORDERED: MAGNESIUM HYDROXIDE SUSP 30 ML UDCUP PO PRN (09:32)
[2018-07-23] MEDS ORDERED: ALUMINUM/MAGNES/SIMETH MAX STR 30 ML UDCUP PO PRN (09:32)
[2018-07-23] MEDS ORDERED: MORPHINE 4 MG/1 ML VIAL IV PRN (09:32)
[2018-07-23] MEDS: PANTOPRAZOLE 40 MG TABLET PO SCH (09:33)
[2018-07-23] MEDS: LEVOFLOXACIN INJ 750 MG in PREMIX 1 EACH IV SCH (09:36)
[2018-07-23] MEDS ORDERED: CYCLOBENZAPRINE 10 MG TABLET PO PRN (09:38)
[2018-07-23 10:04] LABS: Amorphous Crystals,Urine Occasional /HPF (Few); Apearance,Urine CLOUDY (Clear); Bilirubin,Urine Negative (Negative); Blood, Urine Negative (Negative); Glucose,Urine (UA) Negative (Negative); Ketones,Urine 5 mg/dL (Negative); Mucus,Urine Occasional /LPF (Occasional); Nitrite,Urine Negative (Negative); Protein,Urine 30 MG/DL; Urine Color Yellow (Yellow); Urine Specific Gravity 1.025 (1.001-1.035); Urine Urobilinogen < 2.0 EU/DL (0.2-1.0)
[2018-07-23] MEDS: DOCUSATE/SENNA 50-8.6 MG TABLET PO SCH ×2 (10:05→20:14)
[2018-07-23] MEDS: ENOXAPARIN 40 MG/0.4 ML SYRINGE SUBCUT SCH (10:05)
[2018-07-23] MEDS ORDERED: PIPERACILLIN/TAZOBACTAM 3,375 MG in SODIUM CHLORIDE 0.9% 100 ML IV SCH (11:00)
[2018-07-23] MEDS: ARFORMOTEROL 15 MCG/2 ML NEB RESP TX SCH ×2 (12:21→19:09)
[2018-07-23] MEDS: ALBUTEROL/IPRATROPIUM 3 ML NEB RESP TX SCH ×2 (12:21→19:09)
[2018-07-23] MEDS: CLOPIDOGREL 75 MG TABLET PO SCH (17:26)
[2018-07-23] MEDS: BUDESONIDE 0.5 MG/2 ML NEB RESP TX SCH (19:09)
[2018-07-23] MEDS: MORPHINE ER 15 MG TABLET PO SCH (20:14)
[2018-07-24] MEDS: methylPREDNISolone SOD SUC 125 MG/2 ML VIAL IV SCH ×3 (00:50→18:21)
[2018-07-24] MEDS: ALBUTEROL/IPRATROPIUM 3 ML NEB RESP TX SCH ×4 (01:15→19:33)
[2018-07-24] MEDS: ARFORMOTEROL 15 MCG/2 ML NEB RESP TX SCH ×2 (07:10→19:33)
[2018-07-24] MEDS: BUDESONIDE 0.5 MG/2 ML NEB RESP TX SCH ×2 (07:20→19:33)
[2018-07-24] MEDS: DOCUSATE/SENNA 50-8.6 MG TABLET PO SCH ×2 (08:31→20:19)
[2018-07-24] MEDS: PANTOPRAZOLE 40 MG TABLET PO SCH (08:31)
[2018-07-24] MEDS: LEVOFLOXACIN INJ 750 MG in PREMIX 1 EACH IV SCH (08:32)
[2018-07-24] MEDS: MORPHINE ER 15 MG TABLET PO SCH ×2 (09:49→20:19)
[2018-07-24] MEDS: ENOXAPARIN 40 MG/0.4 ML SYRINGE SUBCUT SCH (09:50)
[2018-07-24] MEDS: CLOPIDOGREL 75 MG TABLET PO SCH (18:23)
[2018-07-25] MEDS: methylPREDNISolone SOD SUC 125 MG/2 ML VIAL IV SCH ×2 (00:25→09:17)
[2018-07-25] MEDS: ALBUTEROL/IPRATROPIUM 3 ML NEB RESP TX SCH ×2 (01:50→07:00)
[2018-07-25] MEDS: BUDESONIDE 0.5 MG/2 ML NEB RESP TX SCH (07:00)
[2018-07-25] MEDS: ARFORMOTEROL 15 MCG/2 ML NEB RESP TX SCH (07:00)
[2018-07-25] MEDS: LEVOFLOXACIN INJ 750 MG in PREMIX 1 EACH IV SCH (09:13)
[2018-07-25] MEDS: MORPHINE ER 15 MG TABLET PO SCH (09:16)
[2018-07-25] MEDS: PANTOPRAZOLE 40 MG TABLET PO SCH (09:16)
[2018-07-25] MEDS: DOCUSATE/SENNA 50-8.6 MG TABLET PO SCH (09:18)
[2018-07-25] MEDS: ENOXAPARIN 40 MG/0.4 ML SYRINGE SUBCUT SCH (09:18)
[2018-07-25 14:59] VITALS: BP 130/70
== END 2018-07-25 15:02 ==
LOC: N.2E 07:34 → INTOOBSV 07:34 → SUATTDRO 07:34
PROVIDERS: ADMIT Internal Medicine; ATTEND Internal Medicine

== ENCOUNTER 2018-08-21 21:58 | Inpatient (IN) ==
[2018-08-21] MEDS ORDERED: ONDANSETRON 4 MG/2 ML VIAL IV STA (22:54)
[2018-08-21] MEDS ORDERED: PIPERACILLIN/TAZOBACTAM 3,375 MG in SODIUM CHLORIDE 0.9% 100 ML IV STA (22:54)
[2018-08-21] MEDS ORDERED: methylPREDNISolone SOD SUC 125 MG/2 ML VIAL IV STA (22:54)
[2018-08-21] MEDS ORDERED: SODIUM CHLORIDE 0.9% 1,000 ML IV STA (22:54)
[2018-08-21] MEDS ORDERED: ALBUTEROL 2.5 MG/3 ML NEB RESP TX SCH (23:00)
[2018-08-21] MEDS ORDERED: VANCOMYCIN INJ 1,000 MG in SODIUM CHLORIDE 0.9% 250 ML IV STA (23:30)
[2018-08-22 00:39] LABS: Basophils % 0.5 % (0.0-0.8); Eosinophils % 0.1 % (0.00-10.9); Hemoglobin 10.2 GM/DL (14.0-18.0); Immature Granulocytes Absolute 0.08 #; Lymphocytes # 0.6 10*3/uL (1.4-4.0); Lymphocytes % 7.9 % (21.2-54.2); Mean Corpuscular HGB Conc 30.9 GM/DL (32-36); Mean Corpuscular Hemoglobin 30 PG (27-34); Mean Corpuscular Volume 97.9 FL (87-102); Monocytes # 0.3 10*3/uL (0.11-0.8); Monocytes % 3.8 % (1.7-12.7); Neutrophils % 86.7 % (38.7-73.9); Platelet Count 118 T/CUMM (130-400); Red Blood Count 3.37 MC/CUMM (3.8-5.5); Red Cell Distribution Width 17.2 % (9.3-17.3); White Blood Count 8.1 T/CUMM (4-12)
[2018-08-22] MEDS ORDERED: MORPHINE 4 MG/1 ML VIAL IV STA (00:49)
[2018-08-22] MEDS ORDERED: ONDANSETRON 4 MG/2 ML VIAL IV STA (00:49)
[2018-08-22 01:32] LABS: Alanine Aminotransferase 12 U/L (16-61); Albumin 1.8 G/DL (3.4-5.0); Alkaline Phosphatase 110 U/L (45-117); Aspartate Amino Transferase 24 U/L (0-37); Bilirubin,Total < 0.39 MG/DL (0.2-1.0); Blood Urea Nitrogen 35 MG/DL (7-18); Calcium 8.6 MG/DL (8.5-10.1); Glucose 104 MG/DL (74-106); Osmolality,Calculated 284.5 MOS/KG (273-304); Potassium 4.1 MMOL/L (3.5-5.1); Sodium 139 MMOL/L (136-145); Total Protein 6.1 G/DL (6.4-8.3); Troponin I < 0.015 NG/ML (0.00-0.045)
[2018-08-22] MEDS ORDERED: MAGNESIUM SULF RIDER 2 GM in PREMIX 1 EACH IV STA (01:37)
[2018-08-22] MEDS ORDERED: ONDANSETRON 4 MG/2 ML VIAL IV PRN (02:08)
[2018-08-22] MEDS ORDERED: guaiFENesin/CODEINE 5 ML LIQUID PO PRN (02:24)
[2018-08-22 05:22] LABS: Apearance,Urine Slightly Hazy (Clear); Bilirubin,Urine Negative (Negative); Blood, Urine Small mg/dL (Negative); Glucose,Urine (UA) Negative (Negative); Hyaline Casts,Urine 1 /LPF (0-3); Ketones,Urine Negative (Negative); Mucus,Urine Occasional /LPF (Occasional); Nitrite,Urine Negative (Negative); Protein,Urine Negative; RBC,Urine 1 /HPF (0-4); Urine Color Yellow (Yellow); Urine Specific Gravity 1.023 (1.001-1.035); Urine Urobilinogen < 2.0 EU/DL (0.2-1.0); WBC,Urine 1 /HPF (0-6)
[2018-08-22 07:37] LABS: Basophils % 0.2 % (0.0-0.8); Hematocrit 29.5 VOL% (42.0-52.0); Immature Granulocytes % 0.9 %; Immature Granulocytes Absolute 0.05 #; Lymphocytes # 0.4 10*3/uL (1.4-4.0); Lymphocytes % 6.3 % (21.2-54.2); Mean Corpuscular HGB Conc 30.5 GM/DL (32-36); Mean Corpuscular Hemoglobin 30 PG (27-34); Mean Platelet Volume 9.7 FL (9.6-12.0); Monocytes # 0.1 10*3/uL (0.11-0.8); Neutrophils # 5.3 10*3/uL (1.4-7.4); Neutrophils % 90.6 % (38.7-73.9); Platelet Count 112 T/CUMM (130-400); Red Blood Count 3.01 MC/CUMM (3.8-5.5); Red Cell Distribution Width 17.3 % (9.3-17.3); White Blood Count 5.9 T/CUMM (4-12)
[2018-08-22] MEDS: LEVALBUTEROL 1.25 MG/3 ML NEB RESP TX SCH ×3 (07:46→20:45)
[2018-08-22 07:52] LABS: Alanine Aminotransferase 12 U/L (16-61); Albumin 1.6 G/DL (3.4-5.0); Alkaline Phosphatase 102 U/L (45-117); Aspartate Amino Transferase 21 U/L (0-37); Bilirubin,Total < 0.39 MG/DL (0.2-1.0); Blood Urea Nitrogen 31 MG/DL (7-18); Calcium 8.3 MG/DL (8.5-10.1); Glucose 118 MG/DL (74-106); Osmolality,Calculated 284.5 MOS/KG (273-304); Sodium 139 MMOL/L (136-145); Total Protein 5.5 G/DL (6.4-8.3)
[2018-08-22 08:28] LABS: Band Neutrophils 9 % (0-10); Hypochromasia 1+; Lymphocytes 4 % (20-55); Platelet Estimate Decreased; Segmented Neutrophils 87 % (50-85); Total Cells Counted 100
[2018-08-22] MEDS ORDERED: CLOPIDOGREL 75 MG TABLET PO SCH (09:00)
[2018-08-22] MEDS ORDERED: ACETAMINOPHEN 325 MG TABLET PO PRN (09:19)
[2018-08-22] MEDS ORDERED: BISACODYL 5 MG TABLET PO PRN (09:19)
[2018-08-22] MEDS: MORPHINE ER 15 MG TABLET PO SCH ×4 (09:23→21:00)
[2018-08-22] MEDS: BUDESONIDE/FORMOTEROL 160-4.5 INHALER 6 GM INH SCH ×2 (09:23→21:01)
[2018-08-22] MEDS: methylPREDNISolone SOD SUC 40 MG/1 ML VIAL IV SCH ×3 (09:24→18:40)
[2018-08-22] MEDS: PANTOPRAZOLE 40 MG TABLET PO SCH (09:24)
[2018-08-22] MEDS: PIPERACILLIN/TAZOBACTAM 3,375 MG in SODIUM CHLORIDE 0.9% 100 ML IV SCH ×2 (09:36→17:46)
[2018-08-22] MEDS ORDERED: VANCOMYCIN INJ 750 MG in SODIUM CHLORIDE 0.9% 250 ML IV SCH (16:00)
[2018-08-22] MEDS: DOCUSATE/SENNA 50-8.6 MG TABLET PO SCH (20:59)
[2018-08-22] MEDS: ZINC OXIDE PASTE 113 GM TUBE TOP SCH (21:03)
[2018-08-22] MEDS: VANCOMYCIN INJ 500 MG in SODIUM CHLORIDE 0.9% 100 ML IV SCH (22:30)
[2018-08-23] MEDS: LEVALBUTEROL 1.25 MG/3 ML NEB RESP TX SCH ×4 (01:24→19:58)
[2018-08-23] MEDS: methylPREDNISolone SOD SUC 40 MG/1 ML VIAL IV SCH ×4 (01:45→18:04)
[2018-08-23] MEDS: PIPERACILLIN/TAZOBACTAM 3,375 MG in SODIUM CHLORIDE 0.9% 100 ML IV SCH ×3 (01:45→18:04)
[2018-08-23] MEDS: MORPHINE 4 MG/1 ML VIAL IV PRN ×3 (01:46→21:09)
[2018-08-23] MEDS: MULTIVITAMIN (CENTRUM) TABLET PO SCH (08:50)
[2018-08-23] MEDS: FERROUS SULFATE 325 MG TABLET PO SCH (08:50)
[2018-08-23] MEDS: DOCUSATE/SENNA 50-8.6 MG TABLET PO SCH ×2 (08:51→21:09)
[2018-08-23] MEDS: MORPHINE ER 15 MG TABLET PO SCH ×2 (08:51→22:43)
[2018-08-23] MEDS: VANCOMYCIN INJ 500 MG in SODIUM CHLORIDE 0.9% 100 ML IV SCH ×2 (08:51→22:04)
[2018-08-23] MEDS: PANTOPRAZOLE 40 MG TABLET PO SCH (08:52)
[2018-08-23] MEDS: ZINC OXIDE PASTE 113 GM TUBE TOP SCH ×2 (08:52→21:12)
[2018-08-23] MEDS: BUDESONIDE/FORMOTEROL 160-4.5 INHALER 6 GM INH SCH ×2 (08:54→21:12)
[2018-08-24] MEDS: MORPHINE 4 MG/1 ML VIAL IV PRN ×4 (01:50→23:44)
[2018-08-24] MEDS: PIPERACILLIN/TAZOBACTAM 3,375 MG in SODIUM CHLORIDE 0.9% 100 ML IV SCH ×3 (01:51→17:32)
[2018-08-24] MEDS: methylPREDNISolone SOD SUC 40 MG/1 ML VIAL IV SCH ×4 (01:51→20:49)
[2018-08-24] MEDS: LEVALBUTEROL 1.25 MG/3 ML NEB RESP TX SCH ×2 (01:58→07:16)
[2018-08-24] MEDS ORDERED: HEPARIN 5,000 UNIT/1 ML VIAL ONE (06:45)
[2018-08-24] MEDS ORDERED: LIDOCAINE 1% 20 ML VIAL ONE (06:45)
[2018-08-24] MEDS ORDERED: VANCOMYCIN 500 MG VIAL ONE (06:45)
[2018-08-24] MEDS: BUDESONIDE/FORMOTEROL 160-4.5 INHALER 6 GM INH SCH ×2 (09:30→20:52)
[2018-08-24] MEDS: DOCUSATE/SENNA 50-8.6 MG TABLET PO SCH ×2 (09:30→20:51)
[2018-08-24] MEDS: PANTOPRAZOLE 40 MG TABLET PO SCH (09:30)
[2018-08-24] MEDS: FERROUS SULFATE 325 MG TABLET PO SCH (09:30)
[2018-08-24] MEDS: MULTIVITAMIN (CENTRUM) TABLET PO SCH (09:30)
[2018-08-24] MEDS: ZINC OXIDE PASTE 113 GM TUBE TOP SCH ×2 (09:30→20:51)
[2018-08-24] MEDS ORDERED: ALBUTEROL/IPRATROPIUM 3 ML NEB RESP TX ONE ×2 (09:37→10:15)
[2018-08-24] MEDS ORDERED: HEPARIN 10,000 UNIT/10 ML VIAL ONE (09:48)
[2018-08-24] MEDS ORDERED: PROTAMINE SULFATE 50 MG/5 ML VIAL IV ONE (09:49)
[2018-08-24] MEDS ORDERED: ETOMIDATE 40 MG/20 ML VIAL IV ONE (09:49)
[2018-08-24] MEDS ORDERED: PHENYLEPHRINE 1 MG/10 ML SYRINGE IV ONE (09:49)
[2018-08-24] MEDS ORDERED: fentaNYL 100 MCG/2 ML VIAL ONE (09:49)
[2018-08-24] MEDS ORDERED: SEVOFLURANE 1 UNIT/15 MINUTE INH ONE (09:49)
[2018-08-24] MEDS ORDERED: MIDAZOLAM 2 MG/2 ML VIAL ONE (09:49)
[2018-08-24] MEDS ORDERED: ALBUTEROL 1.25 MG/3 ML NEB RESP TX PRN (09:52)
[2018-08-24] MEDS ORDERED: ONDANSETRON 4 MG/2 ML VIAL IV PRN (10:22)
[2018-08-24] MEDS: MORPHINE 10 MG/1 ML VIAL IV PRN ×2 (10:24→10:31)
[2018-08-24] MEDS ORDERED: ALUM/MAG/SIMETH/LIDO VISC 1:1 30 ML BOTTLE PO ONE (10:48)
[2018-08-24] MEDS: ALBUTEROL/IPRATROPIUM 3 ML NEB RESP TX SCH ×4 (11:07→22:50)
[2018-08-24] MEDS: MORPHINE ER 15 MG TABLET PO SCH ×2 (13:22→20:50)
[2018-08-24] MEDS: VANCOMYCIN INJ 750 MG in SODIUM CHLORIDE 0.9% 250 ML IV SCH ×2 (14:50→23:45)
[2018-08-24] MEDS: VANCOMYCIN INJ 500 MG in SODIUM CHLORIDE 0.9% 100 ML IV SCH (18:31)
[2018-08-25] MEDS: PIPERACILLIN/TAZOBACTAM 3,375 MG in SODIUM CHLORIDE 0.9% 100 ML IV SCH (01:21)
[2018-08-25] MEDS: methylPREDNISolone SOD SUC 40 MG/1 ML VIAL IV SCH ×4 (01:22→18:31)
[2018-08-25] MEDS: ALBUTEROL/IPRATROPIUM 3 ML NEB RESP TX SCH ×6 (02:50→23:26)
[2018-08-25] MEDS: MORPHINE 4 MG/1 ML VIAL IV PRN (03:44)
[2018-08-25 05:51] LABS: Hematocrit 26.5 VOL% (42.0-52.0); Hemoglobin 7.8 GM/DL (14.0-18.0); Immature Granulocytes % 2.5 %; Immature Granulocytes Absolute 0.09 #; Lymphocytes # 0.3 10*3/uL (1.4-4.0); Lymphocytes % 7.5 % (21.2-54.2); Mean Corpuscular HGB Conc 29.4 GM/DL (32-36); Mean Corpuscular Hemoglobin 30 PG (27-34); Mean Corpuscular Volume 100.4 FL (87-102); Mean Platelet Volume 9.7 FL (9.6-12.0); Monocytes # 0.2 10*3/uL (0.11-0.8); Monocytes % 4.5 % (1.7-12.7); Neutrophils # 3.1 10*3/uL (1.4-7.4); Neutrophils % 85.5 % (38.7-73.9); Platelet Count 156 T/CUMM (130-400); Red Blood Count 2.64 MC/CUMM (3.8-5.5); White Blood Count 3.6 T/CUMM (4-12)
[2018-08-25 06:17] LABS: Calcium 8.1 MG/DL (8.5-10.1); Osmolality,Calculated 284.3 MOS/KG (273-304); Potassium 4.1 MMOL/L (3.5-5.1)
[2018-08-25] MEDS ORDERED: MAGNESIUM SULF RIDER 2 GM in PREMIX 1 EACH IV ONE (08:34)
[2018-08-25] MEDS: ZINC OXIDE PASTE 113 GM TUBE TOP SCH (09:00)
[2018-08-25] MEDS: BUDESONIDE/FORMOTEROL 160-4.5 INHALER 6 GM INH SCH (09:00)
[2018-08-25] MEDS: PANTOPRAZOLE 40 MG TABLET PO SCH (09:28)
[2018-08-25] MEDS: ERGOCALCIFEROL 50,000 UNIT CAPSULE PO SCH (09:29)
[2018-08-25] MEDS: DOCUSATE/SENNA 50-8.6 MG TABLET PO SCH ×2 (09:29→20:57)
[2018-08-25] MEDS: MULTIVITAMIN (CENTRUM) TABLET PO SCH (09:30)
[2018-08-25] MEDS: FERROUS SULFATE 325 MG TABLET PO SCH (09:30)
[2018-08-25] MEDS: MORPHINE ER 15 MG TABLET PO SCH ×2 (09:30→20:58)
[2018-08-25] MEDS: CYCLOBENZAPRINE 10 MG TABLET PO PRN ×2 (09:31→20:58)
[2018-08-25 09:48] LABS: Basophils % 0.2 % (0.0-0.8); Hematocrit 31.9 VOL% (42.0-52.0); Hemoglobin 9.3 GM/DL (14.0-18.0); Immature Granulocytes % 2.7 %; Immature Granulocytes Absolute 0.12 #; Lymphocytes # 0.3 10*3/uL (1.4-4.0); Lymphocytes % 6.1 % (21.2-54.2); Mean Corpuscular HGB Conc 29.2 GM/DL (32-36); Mean Corpuscular Hemoglobin 30 PG (27-34); Mean Corpuscular Volume 101.6 FL (87-102); Mean Platelet Volume 9.9 FL (9.6-12.0); Monocytes # 0.1 10*3/uL (0.11-0.8); Monocytes % 2.9 % (1.7-12.7); Neutrophils # 3.9 10*3/uL (1.4-7.4); Neutrophils % 88.1 % (38.7-73.9); Platelet Count 177 T/CUMM (130-400); Red Blood Count 3.14 MC/CUMM (3.8-5.5); White Blood Count 4.5 T/CUMM (4-12)
[2018-08-25] MEDS: VANCOMYCIN INJ 750 MG in SODIUM CHLORIDE 0.9% 250 ML IV SCH (12:05)
[2018-08-26] MEDS: BUDESONIDE/FORMOTEROL 160-4.5 INHALER 6 GM INH SCH ×3 (00:17→20:46)
[2018-08-26] MEDS: VANCOMYCIN INJ 750 MG in SODIUM CHLORIDE 0.9% 250 ML IV SCH ×2 (00:17→14:29)
[2018-08-26] MEDS: methylPREDNISolone SOD SUC 40 MG/1 ML VIAL IV SCH ×3 (01:26→13:00)
[2018-08-26] MEDS: ZINC OXIDE PASTE 113 GM TUBE TOP SCH ×3 (01:27→20:45)
[2018-08-26] MEDS: ALBUTEROL/IPRATROPIUM 3 ML NEB RESP TX SCH ×5 (03:46→19:48)
[2018-08-26] MEDS: ERGOCALCIFEROL 50,000 UNIT CAPSULE PO SCH (10:10)
[2018-08-26] MEDS: FERROUS SULFATE 325 MG TABLET PO SCH (10:10)
[2018-08-26] MEDS: MULTIVITAMIN (CENTRUM) TABLET PO SCH (10:10)
[2018-08-26] MEDS: PANTOPRAZOLE 40 MG TABLET PO SCH (10:11)
[2018-08-26] MEDS: DOCUSATE/SENNA 50-8.6 MG TABLET PO SCH ×2 (10:12→20:46)
[2018-08-26] MEDS: MORPHINE ER 15 MG TABLET PO SCH ×2 (10:12→20:46)
[2018-08-26] MEDS: CYCLOBENZAPRINE 10 MG TABLET PO PRN (16:26)
[2018-08-27] MEDS: VANCOMYCIN INJ 750 MG in SODIUM CHLORIDE 0.9% 250 ML IV SCH ×2 (00:16→11:26)
[2018-08-27] MEDS: ALBUTEROL/IPRATROPIUM 3 ML NEB RESP TX SCH ×7 (00:39→23:46)
[2018-08-27] MEDS: CYCLOBENZAPRINE 10 MG TABLET PO PRN (02:27)
[2018-08-27 05:17] LABS: Eosinophils % 0.5 % (0.00-10.9); Hematocrit 32.1 VOL% (42.0-52.0); Hemoglobin 9.9 GM/DL (14.0-18.0); Immature Granulocytes % 4.3 %; Immature Granulocytes Absolute 0.16 #; Lymphocytes # 0.7 10*3/uL (1.4-4.0); Lymphocytes % 19.7 % (21.2-54.2); Mean Corpuscular HGB Conc 30.8 GM/DL (32-36); Mean Corpuscular Hemoglobin 30 PG (27-34); Mean Corpuscular Volume 96.1 FL (87-102); Mean Platelet Volume 9.4 FL (9.6-12.0); Monocytes # 0.3 10*3/uL (0.11-0.8); Monocytes % 7.5 % (1.7-12.7); Neutrophils # 2.6 10*3/uL (1.4-7.4); Platelet Count 218 T/CUMM (130-400); Red Blood Count 3.34 MC/CUMM (3.8-5.5); Red Cell Distribution Width 15.9 % (9.3-17.3); White Blood Count 3.8 T/CUMM (4-12)
[2018-08-27 05:31] LABS: Calcium 8.1 MG/DL (8.5-10.1); Osmolality,Calculated 278.5 MOS/KG (273-304); Potassium 3.7 MMOL/L (3.5-5.1)
[2018-08-27 05:34] LABS: Alanine Aminotransferase 14 U/L (16-61); Albumin 1.5 G/DL (3.4-5.0); Alkaline Phosphatase 71 U/L (45-117); Aspartate Amino Transferase 14 U/L (0-37); Bilirubin,Total < 0.39 MG/DL (0.2-1.0); Blood Urea Nitrogen 14 MG/DL (7-18); Calcium 8.1 MG/DL (8.5-10.1); Glucose 99 MG/DL (74-106); Osmolality,Calculated 273.8 MOS/KG (273-304); Potassium 3.6 MMOL/L (3.5-5.1); Sodium 137 MMOL/L (136-145); Total Protein 5.4 G/DL (6.4-8.3)
[2018-08-27] MEDS: PANTOPRAZOLE 40 MG TABLET PO SCH (08:59)
[2018-08-27] MEDS: predniSONE 20 MG TABLET PO SCH (08:59)
[2018-08-27] MEDS: MORPHINE ER 15 MG TABLET PO SCH ×2 (08:59→20:59)
[2018-08-27] MEDS: FERROUS SULFATE 325 MG TABLET PO SCH (08:59)
[2018-08-27] MEDS: MULTIVITAMIN (CENTRUM) TABLET PO SCH (08:59)
[2018-08-27] MEDS: ZINC OXIDE PASTE 113 GM TUBE TOP SCH ×2 (09:00→21:01)
[2018-08-27] MEDS: DOCUSATE/SENNA 50-8.6 MG TABLET PO SCH ×2 (09:00→21:00)
[2018-08-27] MEDS: BUDESONIDE/FORMOTEROL 160-4.5 INHALER 6 GM INH SCH ×2 (09:00→21:01)
[2018-08-27] MEDS ORDERED: NYSTATIN 500,000 UNIT/5 ML UDCUP SWISH/SWAL ONE (19:00)
[2018-08-28] MEDS: ALBUTEROL/IPRATROPIUM 3 ML NEB RESP TX SCH ×6 (03:03→23:51)
[2018-08-28] MEDS: VANCOMYCIN INJ 750 MG in SODIUM CHLORIDE 0.9% 250 ML IV SCH ×3 (03:12→23:20)
[2018-08-28] MEDS: MORPHINE ER 15 MG TABLET PO SCH ×2 (09:47→20:45)
[2018-08-28] MEDS: predniSONE 20 MG TABLET PO SCH (09:48)
[2018-08-28] MEDS: MULTIVITAMIN (CENTRUM) TABLET PO SCH (09:48)
[2018-08-28] MEDS: DOCUSATE/SENNA 50-8.6 MG TABLET PO SCH ×2 (09:48→20:47)
[2018-08-28] MEDS: FERROUS SULFATE 325 MG TABLET PO SCH (09:48)
[2018-08-28] MEDS: PANTOPRAZOLE 40 MG TABLET PO SCH (09:48)
[2018-08-28] MEDS: ZINC OXIDE PASTE 113 GM TUBE TOP SCH ×2 (09:49→20:46)
[2018-08-28] MEDS: BUDESONIDE/FORMOTEROL 160-4.5 INHALER 6 GM INH SCH ×2 (09:49→20:47)
[2018-08-28] MEDS: NYSTATIN 500,000 UNIT/5 ML UDCUP SWISH/SWAL SCH ×4 (11:35→20:46)
[2018-08-29] MEDS: ALBUTEROL/IPRATROPIUM 3 ML NEB RESP TX SCH ×2 (03:33→07:23)
[2018-08-29] MEDS: predniSONE 20 MG TABLET PO SCH (08:32)
[2018-08-29] MEDS: MORPHINE ER 15 MG TABLET PO SCH (08:32)
[2018-08-29] MEDS: PANTOPRAZOLE 40 MG TABLET PO SCH (08:33)
[2018-08-29] MEDS: FERROUS SULFATE 325 MG TABLET PO SCH (08:33)
[2018-08-29] MEDS: MULTIVITAMIN (CENTRUM) TABLET PO SCH (08:33)
[2018-08-29] MEDS: DOCUSATE/SENNA 50-8.6 MG TABLET PO SCH (08:33)
[2018-08-29] MEDS: NYSTATIN 500,000 UNIT/5 ML UDCUP SWISH/SWAL SCH (08:33)
[2018-08-29] MEDS: ZINC OXIDE PASTE 113 GM TUBE TOP SCH (08:34)
[2018-08-29] MEDS: BUDESONIDE/FORMOTEROL 160-4.5 INHALER 6 GM INH SCH (08:34)
[2018-08-29 09:25] VITALS: BP 122/67
== END 2018-08-29 10:47 | DRG 253 ==
LOC: N.ED 21:58 → N.EDINP 08-22 02:08 → SUATTDRO 08-22 02:08 → N.5E 08-22 03:05
PROVIDERS: ADMIT Hospitalist; ATTEND Internal Medicine Cardiovascular Disease

== ENCOUNTER 2018-10-11 23:28 | Inpatient (IN) ==
[2018-10-12] MEDS ORDERED: ONDANSETRON 4 MG/2 ML VIAL ONE (00:10)
[2018-10-12] MEDS ORDERED: ONDANSETRON 4 MG/2 ML VIAL IV STA (00:25)
[2018-10-12 00:27] LABS: ABG Base Excess 5.6 MMOL/L (-2.5-2.5); ABG HCO3 29.5 MMOL/L (20-26); ABG Oxygen Saturation 99.8 % (95-100); ABG PH 7.236 (7.35-7.45); ABG TCO2 33.3 MMOL/L (23-27); Allen Test Positive
[2018-10-12 00:29] LABS: ABG PCO2 84.5 MM HG (35-48)
[2018-10-12] MEDS ORDERED: ALBUTEROL/IPRATROPIUM 3 ML NEB RESP TX STA ×3 (00:36→01:48)
[2018-10-12] MEDS ORDERED: methylPREDNISolone SOD SUC 125 MG/2 ML VIAL IV STA (00:40)
[2018-10-12 00:47] LABS: Albumin 2.5 G/DL (3.4-5.0); Bilirubin,Total 0.4 MG/DL (0.2-1.0); Calcium 9.6 MG/DL (8.5-10.1); Osmolality,Calculated 286.3 MOS/KG (273-304); Total Protein 7.3 G/DL (6.4-8.3)
[2018-10-12 01:13] LABS: Basophils % 0.6 % (0.0-0.8); Hematocrit 35.5 VOL% (42.0-52.0); Hemoglobin 10.7 GM/DL (14.0-18.0); Immature Granulocytes % 1.5 %; Immature Granulocytes Absolute 0.08 #; Lymphocytes # 0.5 10*3/uL (1.4-4.0); Mean Corpuscular HGB Conc 30.1 GM/DL (32-36); Mean Platelet Volume 9.2 FL (9.6-12.0); Monocytes % 8.8 % (1.7-12.7); NRBC # 0.02 10*3/uL; Neutrophils % 80.1 % (38.7-73.9); Platelet Count 277 T/CUMM (130-400); Red Blood Count 3.66 MC/CUMM (3.8-5.5); White Blood Count 5.2 T/CUMM (4-12)
[2018-10-12] MEDS ORDERED: ALBUTEROL 2.5 MG/3 ML NEB RESP TX STA (01:21)
[2018-10-12] MEDS ORDERED: HYDROmorphone 2 MG/1 ML VIAL IV STA (01:36)
[2018-10-12 01:44] LABS: ABG Base Excess 6.7 MMOL/L (-2.5-2.5); ABG HCO3 30.4 MMOL/L (20-26); ABG Oxygen Saturation 91.5 % (95-100); ABG PH 7.281 (7.35-7.45); ABG PO2 69.9 MM HG (80-95); ABG TCO2 33.1 MMOL/L (23-27)
[2018-10-12 01:47] LABS: ABG PCO2 76.2 MM HG (35-48)
[2018-10-12] MEDS ORDERED: NICOTINE 21 MG/24 HR PATCH TRANSDERM PRN (02:14)
[2018-10-12] MEDS ORDERED: guaiFENesin/DM ER 600-30 MG TABLET PO PRN (02:14)
[2018-10-12] MEDS ORDERED: ENOXAPARIN 100 MG/ML SYRINGE SUBCUT ONE (02:14)
[2018-10-12] MEDS ORDERED: BISACODYL 5 MG TABLET PO PRN (02:14)
[2018-10-12] MEDS ORDERED: ONDANSETRON 4 MG/2 ML VIAL IV PRN (02:14)
[2018-10-12] MEDS ORDERED: ACETAMINOPHEN 325 MG TABLET PO PRN (02:14)
[2018-10-12] MEDS: LEVOFLOXACIN INJ 750 MG in PREMIX 1 EACH IV SCH (03:25)
[2018-10-12] MEDS: MORPHINE 4 MG/1 ML VIAL IV PRN ×2 (04:22→08:25)
[2018-10-12 04:48] LABS: Alanine Aminotransferase 23 U/L (16-61); Albumin 2.3 G/DL (3.4-5.0); Alkaline Phosphatase 202 U/L (45-117); Aspartate Amino Transferase 44 U/L (0-37); Bilirubin,Total < 0.39 MG/DL (0.2-1.0); Blood Urea Nitrogen 33 MG/DL (7-18); Calcium 9.3 MG/DL (8.5-10.1); Glucose 91 MG/DL (74-106); Osmolality,Calculated 283.5 MOS/KG (273-304); Total Protein 6.7 G/DL (6.4-8.3)
[2018-10-12] MEDS: PANTOPRAZOLE 40 MG TABLET PO SCH (08:25)
[2018-10-12] MEDS: ALBUTEROL/IPRATROPIUM 3 ML NEB RESP TX SCH ×3 (08:59→19:29)
[2018-10-12 10:00] LABS: ABG Base Excess 6.2 MMOL/L (-2.5-2.5); ABG HCO3 30.1 MMOL/L (20-26); ABG PH 7.245 (7.35-7.45); ABG TCO2 33.7 MMOL/L (23-27); Pt O2 Delivery Device Other
[2018-10-12 10:07] LABS: ABG PCO2 83.2 MM HG (35-48)
[2018-10-12] MEDS ORDERED: VECURONIUM 10 MG VIAL IV ONE ×2 (10:31→11:33)
[2018-10-12] MEDS ORDERED: MIDAZOLAM 10 MG/2 ML VIAL ONE (10:31)
[2018-10-12] MEDS: MORPHINE 4 MG/1 ML VIAL IV SCH ×6 (10:42→21:32)
[2018-10-12] MEDS: MORPHINE ER 15 MG TABLET PO SCH ×2 (10:44→21:05)
[2018-10-12] MEDS: methylPREDNISolone SOD SUC 40 MG/1 ML VIAL IV SCH ×2 (10:52→21:03)
[2018-10-12] MEDS ORDERED: ASPIRIN 325 MG TABLET PO ONE (10:58)
[2018-10-12] MEDS ORDERED: PROPOFOL 200 MG/20 ML VIAL IV PRN (10:59)
[2018-10-12] MEDS ORDERED: PROPOFOL 1,000 MG/100 ML BOTTLE IV ONE (11:03)
[2018-10-12] MEDS ORDERED: MIDAZOLAM 2 MG/2 ML VIAL IV ONE (11:30)
[2018-10-12] MEDS: METOPROLOL TARTRATE 25 MG TABLET PO SCH ×2 (11:34→21:02)
[2018-10-12] MEDS: PROPOFOL 1,000 MG/100 ML BOTTLE IV SCH ×2 (11:48→23:09)
[2018-10-12] MEDS: ENOXAPARIN 40 MG/0.4 ML SYRINGE SUBCUT SCH (14:35)
[2018-10-12 15:04] LABS: Apearance,Urine CLEAR (Clear); Bilirubin,Urine Negative (Negative); Blood, Urine Small mg/dL (Negative); Glucose,Urine (UA) Negative (Negative); Ketones,Urine 20 mg/dL (Negative); Mucus,Urine Occasional /LPF (Occasional); Nitrite,Urine Negative (Negative); Protein,Urine 100 MG/DL; RBC,Urine 3 /HPF (0-4); Squamous Epithelial Cell,Urine Occasional /HPF (0-10); Urine Color Yellow (Yellow); Urine Specific Gravity 1.047 (1.001-1.035); Urine Urobilinogen < 2.0 EU/DL (0.2-1.0); WBC,Urine <1 /HPF (0-6)
[2018-10-12] MEDS: FUROSEMIDE 40 MG/4 ML VIAL IV SCH (15:40)
[2018-10-12] MEDS: ROSUVASTATIN 10 MG TABLET PO SCH (21:02)
[2018-10-12] MEDS: fentaNYL INJ 1,250 MCG in SODIUM CHLORIDE 0.9% 225 ML IV PRN (21:26)
[2018-10-13] MEDS: ALBUTEROL/IPRATROPIUM 3 ML NEB RESP TX SCH ×4 (00:14→19:45)
[2018-10-13] MEDS: ENOXAPARIN 40 MG/0.4 ML SYRINGE SUBCUT SCH ×2 (01:58→15:00)
[2018-10-13] MEDS: LEVOFLOXACIN INJ 750 MG in PREMIX 1 EACH IV SCH (01:58)
[2018-10-13 04:38] LABS: Basophils % 0.2 % (0.0-0.8); Hematocrit 27.8 VOL% (42.0-52.0); Hemoglobin 8.4 GM/DL (14.0-18.0); Immature Granulocytes % 2.1 %; Immature Granulocytes Absolute 0.13 #; Lymphocytes # 0.8 10*3/uL (1.4-4.0); Lymphocytes % 12.8 % (21.2-54.2); Mean Corpuscular HGB Conc 30.2 GM/DL (32-36); Mean Corpuscular Volume 96.9 FL (87-102); Mean Platelet Volume 9.3 FL (9.6-12.0); Monocytes % 8.4 % (1.7-12.7); NRBC # 0.02 10*3/uL; Neutrophils % 76.5 % (38.7-73.9); Platelet Count 188 T/CUMM (130-400); Red Blood Count 2.87 MC/CUMM (3.8-5.5); Red Cell Distribution Width 14.9 % (9.3-17.3); White Blood Count 6.1 T/CUMM (4-12)
[2018-10-13 04:56] LABS: Calcium 8.9 MG/DL (8.5-10.1); Osmolality,Calculated 292.1 MOS/KG (273-304)
[2018-10-13 05:08] LABS: Band Neutrophils 5 % (0-10); Lymphocytes 13 % (20-55); Segmented Neutrophils 78 % (50-85); Total Cells Counted 100
[2018-10-13 05:11] LABS: Hypochromasia 1+; Platelet Estimate Normal; Reactive Lymphocytes Few
[2018-10-13 05:14] LABS: Ovalocytes 1+
[2018-10-13 06:03] LABS: ABG Base Excess 10.1 MMOL/L (-2.5-2.5); ABG HCO3 35.9 MMOL/L (20-26); ABG Oxygen Saturation 98.8 % (95-100); ABG PCO2 56.5 MM HG (35-48); ABG PH 7.421 (7.35-7.45); ABG PO2 223.9 MM HG (80-95); ABG TCO2 37.6 MMOL/L (23-27); Allen Test Positive; Pt O2 Delivery Device Ventilator
[2018-10-13] MEDS: FUROSEMIDE 40 MG/4 ML VIAL IV SCH ×2 (08:44→15:00)
[2018-10-13] MEDS: methylPREDNISolone SOD SUC 40 MG/1 ML VIAL IV SCH ×2 (08:46→21:41)
[2018-10-13] MEDS: MORPHINE ER 15 MG TABLET PO SCH ×2 (08:48→21:41)
[2018-10-13] MEDS: ASPIRIN EC 81 MG TABLET PO SCH (08:48)
[2018-10-13] MEDS: PANTOPRAZOLE 40 MG TABLET PO SCH (08:48)
[2018-10-13] MEDS: METOPROLOL TARTRATE 25 MG TABLET PO SCH ×2 (08:48→21:41)
[2018-10-13] MEDS: PROPOFOL 1,000 MG/100 ML BOTTLE IV SCH (12:11)
[2018-10-13] MEDS ORDERED: DEXTROSE 50% 25 GM/50 ML SYRINGE IV PRN (15:44)
[2018-10-13] MEDS ORDERED: GLUCAGON 1 MG VIAL IM PRN (15:44)
[2018-10-13] MEDS: DILTIAZEM 30 MG TABLET PO SCH ×2 (18:00→21:41)
[2018-10-13] MEDS: INSULIN REGULAR 100 UNIT/ML SUBCUT SCH (20:53)
[2018-10-13] MEDS: ROSUVASTATIN 10 MG TABLET PO SCH (21:41)
[2018-10-14] MEDS: ALBUTEROL/IPRATROPIUM 3 ML NEB RESP TX SCH ×4 (02:01→20:12)
[2018-10-14] MEDS: INSULIN REGULAR 100 UNIT/ML SUBCUT SCH ×4 (02:01→18:30)
[2018-10-14] MEDS: ENOXAPARIN 40 MG/0.4 ML SYRINGE SUBCUT SCH (03:00)
[2018-10-14] MEDS: LEVOFLOXACIN INJ 750 MG in PREMIX 1 EACH IV SCH (03:00)
[2018-10-14] MEDS: DILTIAZEM 30 MG TABLET PO SCH ×4 (04:23→21:31)
[2018-10-14 04:32] LABS: ABG Base Excess 17.9 MMOL/L (-2.5-2.5); ABG HCO3 42.6 MMOL/L (20-26); ABG Oxygen Saturation 95.9 % (95-100); ABG PCO2 52.4 MM HG (35-48); ABG PH 7.528 (7.35-7.45); ABG PO2 84.9 MM HG (80-95); ABG TCO2 44.2 MMOL/L (23-27); Allen Test Positive; Pt O2 Delivery Device Ventilator
[2018-10-14 04:37] LABS: Prealbumin 15.6 MG/DL (20-40)
[2018-10-14 04:50] LABS: Hematocrit 25.3 VOL% (42.0-52.0); Hemoglobin 7.7 GM/DL (14.0-18.0); Immature Granulocytes % 2.5 %; Lymphocytes # 0.4 10*3/uL (1.4-4.0); Lymphocytes % 10.1 % (21.2-54.2); Mean Corpuscular HGB Conc 30.4 GM/DL (32-36); Mean Corpuscular Volume 95.8 FL (87-102); Mean Platelet Volume 9.5 FL (9.6-12.0); Monocytes % 5.2 % (1.7-12.7); NRBC # 0.04 10*3/uL; Neutrophils % 82.2 % (38.7-73.9); Platelet Count 167 T/CUMM (130-400); Red Blood Count 2.64 MC/CUMM (3.8-5.5); Red Cell Distribution Width 14.6 % (9.3-17.3); White Blood Count 4.1 T/CUMM (4-12)
[2018-10-14 05:12] LABS: Hypochromasia 1+; Lymphocytes 7 % (20-55); Platelet Estimate Normal; Segmented Neutrophils 90 % (50-85); Total Cells Counted 100
[2018-10-14] MEDS: MORPHINE ER 15 MG TABLET PO SCH ×2 (09:14→21:31)
[2018-10-14] MEDS: methylPREDNISolone SOD SUC 40 MG/1 ML VIAL IV SCH ×2 (09:14→21:32)
[2018-10-14] MEDS: ASPIRIN EC 81 MG TABLET PO SCH (09:14)
[2018-10-14] MEDS: METOPROLOL TARTRATE 25 MG TABLET PO SCH ×2 (09:14→21:31)
[2018-10-14] MEDS: FUROSEMIDE 40 MG/4 ML VIAL IV SCH ×2 (09:16→16:11)
[2018-10-14] MEDS: fentaNYL INJ 1,250 MCG in SODIUM CHLORIDE 0.9% 225 ML IV PRN (11:06)
[2018-10-14] MEDS: PANTOPRAZOLE 40 MG TABLET PO SCH (12:55)
[2018-10-14] MEDS: PROPOFOL 1,000 MG/100 ML BOTTLE IV SCH (12:57)
[2018-10-14] MEDS ORDERED: ENOXAPARIN 30 MG/0.3 ML SYRINGE SUBCUT SCH (21:00)
[2018-10-14] MEDS: ROSUVASTATIN 10 MG TABLET PO SCH (21:31)
[2018-10-14] MEDS: PANTOPRAZOLE 40 MG VIAL IV SCH (21:33)
[2018-10-15] MEDS: ALBUTEROL/IPRATROPIUM 3 ML NEB RESP TX SCH ×4 (00:12→19:38)
[2018-10-15] MEDS: INSULIN REGULAR 100 UNIT/ML SUBCUT SCH ×4 (01:20→18:28)
[2018-10-15] MEDS: LEVOFLOXACIN INJ 750 MG in PREMIX 1 EACH IV SCH (04:30)
[2018-10-15] MEDS: DILTIAZEM 30 MG TABLET PO SCH ×4 (04:30→20:46)
[2018-10-15] MEDS: fentaNYL INJ 1,250 MCG in SODIUM CHLORIDE 0.9% 225 ML IV PRN (05:20)
[2018-10-15 08:23] LABS: Basophils % 0.2 % (0.0-0.8); Hematocrit 27.1 VOL% (42.0-52.0); Hemoglobin 8.4 GM/DL (14.0-18.0); Immature Granulocytes Absolute 0.27 #; Lymphocytes # 0.5 10*3/uL (1.4-4.0); Lymphocytes % 8.9 % (21.2-54.2); Mean Corpuscular Volume 95.4 FL (87-102); Mean Platelet Volume 9.4 FL (9.6-12.0); Monocytes % 7.8 % (1.7-12.7); NRBC # 0.04 10*3/uL; Neutrophils % 78.1 % (38.7-73.9); Platelet Count 147 T/CUMM (130-400); Red Blood Count 2.84 MC/CUMM (3.8-5.5); Red Cell Distribution Width 14.3 % (9.3-17.3); White Blood Count 5.4 T/CUMM (4-12)
[2018-10-15 08:36] LABS: Calcium 8.7 MG/DL (8.5-10.1); Osmolality,Calculated 290.5 MOS/KG (273-304)
[2018-10-15] MEDS ORDERED: POTASSIUM CHLORIDE 20 MEQ/15 ML UDCUP PER TUBE PRN (09:07)
[2018-10-15] MEDS: FUROSEMIDE 40 MG/4 ML VIAL IV SCH ×2 (09:17→10:44)
[2018-10-15] MEDS: PANTOPRAZOLE 40 MG VIAL IV SCH (09:21)
[2018-10-15] MEDS: methylPREDNISolone SOD SUC 40 MG/1 ML VIAL IV SCH ×2 (09:24→20:44)
[2018-10-15] MEDS: ASPIRIN EC 81 MG TABLET PO SCH (09:39)
[2018-10-15] MEDS: METOPROLOL TARTRATE 25 MG TABLET PO SCH ×2 (09:40→20:46)
[2018-10-15] MEDS: MORPHINE 4 MG/1 ML VIAL IV PRN ×4 (11:33→23:34)
[2018-10-15] MEDS: MORPHINE ER 15 MG TABLET PO SCH ×2 (12:25→20:46)
[2018-10-15] MEDS: POTASSIUM CHLORIDE 20 MEQ TABLET PO PRN ×2 (12:45→12:46)
[2018-10-15] MEDS: PROPOFOL 1,000 MG/100 ML BOTTLE IV SCH (15:09)
[2018-10-15] MEDS: ROSUVASTATIN 10 MG TABLET PO SCH (20:46)
[2018-10-16] MEDS: INSULIN REGULAR 100 UNIT/ML SUBCUT SCH ×2 (00:10→05:43)
[2018-10-16] MEDS: ALBUTEROL/IPRATROPIUM 3 ML NEB RESP TX SCH ×4 (00:59→20:42)
[2018-10-16] MEDS: MORPHINE 4 MG/1 ML VIAL IV PRN ×2 (02:30→10:49)
[2018-10-16] MEDS: LEVOFLOXACIN INJ 750 MG in PREMIX 1 EACH IV SCH (02:34)
[2018-10-16] MEDS: DILTIAZEM 30 MG TABLET PO SCH (02:34)
[2018-10-16 04:01] LABS: Basophils % 0.2 % (0.0-0.8); Hematocrit 28.3 VOL% (42.0-52.0); Hemoglobin 8.5 GM/DL (14.0-18.0); Immature Granulocytes % 5.7 %; Immature Granulocytes Absolute 0.31 #; Lymphocytes # 0.4 10*3/uL (1.4-4.0); Mean Corpuscular Volume 95.9 FL (87-102); Mean Platelet Volume 9.7 FL (9.6-12.0); Monocytes % 2.4 % (1.7-12.7); NRBC # 0.02 10*3/uL; Neutrophils % 83.7 % (38.7-73.9); Platelet Count 158 T/CUMM (130-400); Red Blood Count 2.95 MC/CUMM (3.8-5.5); Red Cell Distribution Width 14.4 % (9.3-17.3); White Blood Count 5.5 T/CUMM (4-12)
[2018-10-16 04:28] LABS: Osmolality,Calculated 286.5 MOS/KG (273-304)
[2018-10-16 04:39] LABS: Lymphocytes 7 % (20-55); Segmented Neutrophils 91 % (50-85); Total Cells Counted 100
[2018-10-16 04:40] LABS: Hypochromasia 1+; Platelet Estimate Normal; Reactive Lymphocytes 1+
[2018-10-16] MEDS: METOPROLOL TARTRATE 25 MG TABLET PO SCH ×2 (08:56→20:15)
[2018-10-16] MEDS: LISINOPRIL 2.5 MG TABLET PO SCH (08:56)
[2018-10-16] MEDS: FUROSEMIDE 20 MG TABLET PO SCH (08:56)
[2018-10-16] MEDS: ASPIRIN EC 81 MG TABLET PO SCH (08:56)
[2018-10-16] MEDS: MORPHINE ER 15 MG TABLET PO SCH ×2 (08:56→20:15)
[2018-10-16] MEDS: PANTOPRAZOLE 40 MG VIAL IV SCH (08:59)
[2018-10-16] MEDS ORDERED: DILTIAZEM CD 120 MG CAPSULE PO SCH (09:00)
[2018-10-16] MEDS: methylPREDNISolone SOD SUC 40 MG/1 ML VIAL IV SCH (09:02)
[2018-10-16] MEDS ORDERED: traZODone 50 MG TABLET PO PRN (12:36)
[2018-10-16] MEDS: HYDROmorphone 2 MG/1 ML VIAL IV PRN ×2 (19:02→23:42)
[2018-10-16] MEDS: ROSUVASTATIN 10 MG TABLET PO SCH (20:15)
[2018-10-17] MEDS: ALBUTEROL/IPRATROPIUM 3 ML NEB RESP TX SCH ×4 (01:42→19:20)
[2018-10-17] MEDS ORDERED: ALBUTEROL/IPRATROPIUM 3 ML NEB RESP TX PRN (04:57)
[2018-10-17 05:31] LABS: Basophils % 0.1 % (0.0-0.8); Hemoglobin 9.6 GM/DL (14.0-18.0); Immature Granulocytes % 4.3 %; Immature Granulocytes Absolute 0.33 #; Lymphocytes # 0.6 10*3/uL (1.4-4.0); Lymphocytes % 7.6 % (21.2-54.2); Mean Corpuscular Volume 94.5 FL (87-102); Mean Platelet Volume 9.8 FL (9.6-12.0); Platelet Count 167 T/CUMM (130-400); Red Blood Count 3.28 MC/CUMM (3.8-5.5); Red Cell Distribution Width 14.7 % (9.3-17.3); White Blood Count 7.6 T/CUMM (4-12)
[2018-10-17 06:00] LABS: Calcium 9.2 MG/DL (8.5-10.1); Osmolality,Calculated 280.7 MOS/KG (273-304)
[2018-10-17] MEDS: ISOSORBIDE MONONITRATE 30 MG TABLET PO SCH (10:23)
[2018-10-17] MEDS: FUROSEMIDE 20 MG TABLET PO SCH (10:24)
[2018-10-17] MEDS: LISINOPRIL 2.5 MG TABLET PO SCH (10:24)
[2018-10-17] MEDS: METOPROLOL TARTRATE 25 MG TABLET PO SCH ×2 (10:25→20:12)
[2018-10-17] MEDS ORDERED: METOPROLOL TARTRATE 25 MG TABLET PO ONE (10:25)
[2018-10-17] MEDS: predniSONE 10 MG TABLET PO SCH (10:32)
[2018-10-17] MEDS: ASPIRIN EC 81 MG TABLET PO SCH (10:33)
[2018-10-17] MEDS: PANTOPRAZOLE 40 MG TABLET PO SCH (10:33)
[2018-10-17] MEDS: MORPHINE ER 15 MG TABLET PO SCH ×2 (11:55→20:11)
[2018-10-17] MEDS ORDERED: ALBUTEROL 2.5 MG/3 ML NEB RESP TX PRN (17:38)
[2018-10-17] MEDS: ROSUVASTATIN 10 MG TABLET PO SCH (20:12)
[2018-10-18] MEDS: ALBUTEROL/IPRATROPIUM 3 ML NEB RESP TX SCH ×5 (02:20→19:20)
[2018-10-18] MEDS: HYDROmorphone 2 MG/1 ML VIAL IV PRN ×3 (04:56→19:33)
[2018-10-18 06:14] LABS: Basophils % 0.3 % (0.0-0.8); Eosinophils % 0.1 % (0.00-10.9); Hematocrit 33.7 VOL% (42.0-52.0); Hemoglobin 10.1 GM/DL (14.0-18.0); Immature Granulocytes % 2.8 %; Immature Granulocytes Absolute 0.21 #; Lymphocytes # 0.6 10*3/uL (1.4-4.0); Lymphocytes % 8.6 % (21.2-54.2); Mean Corpuscular Volume 96.8 FL (87-102); Mean Platelet Volume 9.6 FL (9.6-12.0); Neutrophils % 84.2 % (38.7-73.9); Platelet Count 166 T/CUMM (130-400); Red Blood Count 3.48 MC/CUMM (3.8-5.5); Red Cell Distribution Width 15.1 % (9.3-17.3); White Blood Count 7.5 T/CUMM (4-12)
[2018-10-18 06:22] LABS: Calcium 8.5 MG/DL (8.5-10.1); Osmolality,Calculated 280.7 MOS/KG (273-304)
[2018-10-18] MEDS: predniSONE 10 MG TABLET PO SCH (08:56)
[2018-10-18] MEDS: MORPHINE ER 15 MG TABLET PO SCH (08:56)
[2018-10-18] MEDS: ASPIRIN EC 81 MG TABLET PO SCH (08:57)
[2018-10-18] MEDS: FUROSEMIDE 20 MG TABLET PO SCH (08:57)
[2018-10-18] MEDS: PANTOPRAZOLE 40 MG TABLET PO SCH (08:57)
[2018-10-18] MEDS: LISINOPRIL 2.5 MG TABLET PO SCH (10:07)
[2018-10-18] MEDS: METOPROLOL TARTRATE 25 MG TABLET PO SCH (10:07)
[2018-10-18] MEDS: ISOSORBIDE MONONITRATE 30 MG TABLET PO SCH (10:07)
[2018-10-18] MEDS: MORPHINE ER 30 MG TABLET PO SCH (20:54)
[2018-10-19] MEDS: HYDROmorphone 2 MG/1 ML VIAL IV PRN ×4 (00:37→14:22)
[2018-10-19] MEDS: ALBUTEROL/IPRATROPIUM 3 ML NEB RESP TX SCH ×3 (07:24→15:38)
[2018-10-19 08:36] VITALS: BP 104/61
[2018-10-19] MEDS: ASPIRIN EC 81 MG TABLET PO SCH (09:15)
[2018-10-19] MEDS: PANTOPRAZOLE 40 MG TABLET PO SCH (09:15)
[2018-10-19] MEDS: predniSONE 10 MG TABLET PO SCH (09:15)
[2018-10-19] MEDS: MORPHINE ER 30 MG TABLET PO SCH (11:06)
== END 2018-10-19 15:55 | disposition hospice, home (50) | DRG 208 ==
LOC: N.ED 23:28 → N.EDINP 10-12 02:14 → SUATTDRO 10-12 02:14 → N.CC 10-12 02:41 → N.2E 10-16 11:54
PROVIDERS: ADMIT Internal Medicine; ATTEND Emergency Medicine

== ENCOUNTER 2018-11-09 04:36 | Inpatient (IN) ==
[2018-11-09] MEDS ORDERED: MORPHINE 4 MG/1 ML VIAL IV STA (05:08)
[2018-11-09] MEDS ORDERED: ALBUTEROL/IPRATROPIUM 3 ML NEB RESP TX STA (05:08)
[2018-11-09] MEDS ORDERED: FUROSEMIDE 100 MG/10 ML VIAL IV STA (05:08)
[2018-11-09] MEDS ORDERED: ONDANSETRON 4 MG/2 ML VIAL IV STA (05:08)
[2018-11-09 05:25] LABS: Basophils % 0.7 % (0.0-0.8); Eosinophils % 0.2 % (0.00-10.9); Hematocrit 33.8 VOL% (42.0-52.0); Hemoglobin 9.9 GM/DL (14.0-18.0); Immature Granulocytes % 1.6 %; Immature Granulocytes Absolute 0.07 #; Lymphocytes # 0.7 10*3/uL (1.4-4.0); Mean Corpuscular HGB Conc 29.3 GM/DL (32-36); Mean Corpuscular Volume 100.9 FL (87-102); Mean Platelet Volume 9.4 FL (9.6-12.0); Monocytes % 9.1 % (1.7-12.7); Neutrophils % 73.4 % (38.7-73.9); Platelet Count 144 T/CUMM (130-400); Red Blood Count 3.35 MC/CUMM (3.8-5.5); Red Cell Distribution Width 16.5 % (9.3-17.3); White Blood Count 4.4 T/CUMM (4-12)
[2018-11-09 05:31] LABS: PT Patient Result 10.4 SECS
[2018-11-09 05:31] LABS: ABG Base Excess 13.3 MMOL/L (-2.5-2.5); ABG HCO3 37.1 MMOL/L (20-26); ABG Oxygen Saturation 97.5 % (95-100); ABG PH 7.302 (7.35-7.45); ABG PO2 95.9 MM HG (80-95)
[2018-11-09 05:34] LABS: ABG PCO2 87.3 MM HG (35-48)
[2018-11-09 05:37] LABS: Albumin 2.6 G/DL (3.4-5.0); Bilirubin,Total 0.4 MG/DL (0.2-1.0); Calcium 9.3 MG/DL (8.5-10.1); Osmolality,Calculated 284.3 MOS/KG (273-304); Total Protein 6.5 G/DL (6.4-8.3)
[2018-11-09 05:59] LABS: Band Neutrophils 1 % (0-10); Lymphocytes 14 % (20-55); Metamyelocytes 3 %; Platelet Estimate Decreased; Segmented Neutrophils 73 % (50-85); Total Cells Counted 100
[2018-11-09] MEDS ORDERED: PROMETHAZINE 25 MG/1 ML VIAL IM PRN (07:39)
[2018-11-09] MEDS ORDERED: ACETAMINOPHEN 325 MG TABLET PO PRN (07:39)
[2018-11-09] MEDS ORDERED: ONDANSETRON 4 MG/2 ML VIAL IV PRN (07:39)
[2018-11-09] MEDS ORDERED: MORPHINE 4 MG/1 ML VIAL IV PRN ×2 (07:39→07:44)
[2018-11-09] MEDS ORDERED: LORazepam 2 MG/1 ML VIAL IV PRN (07:45)
[2018-11-09] MEDS ORDERED: ENOXAPARIN 40 MG/0.4 ML SYRINGE SUBCUT SCH (08:00)
[2018-11-09 08:05] LABS: Apearance,Urine CLEAR (Clear); Bacteria,Urine Occasional /HPF (Few); Bilirubin,Urine Negative (Negative); Blood, Urine Small mg/dL (Negative); Glucose,Urine (UA) Negative (Negative); Hyaline Casts,Urine 1 /LPF (0-3); Ketones,Urine Negative (Negative); Mucus,Urine Occasional /LPF (Occasional); Nitrite,Urine Negative (Negative); Protein,Urine Negative; RBC,Urine 1 /HPF (0-4); Squamous Epithelial Cell,Urine Occasional /HPF (0-10); Urine Color Colorless (Yellow); Urine Specific Gravity 1.004 (1.001-1.035); Urine Urobilinogen < 2.0 EU/DL (0.2-1.0); WBC,Urine <1 /HPF (0-6)
[2018-11-09] MEDS ORDERED: PANTOPRAZOLE 40 MG TABLET PO SCH (09:00)
[2018-11-09] MEDS ORDERED: fentaNYL 50 MCG/HR PATCH TRANSDERM SCH (09:00)
[2018-11-09] MEDS: FUROSEMIDE 40 MG/4 ML VIAL IV SCH ×2 (09:17→15:56)
[2018-11-09] MEDS ORDERED: SCOPOLAMINE 1.5 MG PATCH TRANSDERM SCH (12:00)
[2018-11-09] MEDS: ALBUTEROL/IPRATROPIUM 3 ML NEB RESP TX SCH ×2 (12:25→19:16)
[2018-11-10] MEDS: ALBUTEROL/IPRATROPIUM 3 ML NEB RESP TX SCH (00:37)
[2018-11-10 06:06] LABS: Albumin 2.2 G/DL (3.4-5.0); Basophils # 0.1 10*3/uL (0.0-0.2); Basophils % 0.8 % (0.0-0.8); Bilirubin,Total 1.2 MG/DL (0.2-1.0); Calcium 9.3 MG/DL (8.5-10.1); Hematocrit 34.7 VOL% (42.0-52.0); Immature Granulocytes % 1.1 %; Immature Granulocytes Absolute 0.15 #; Lymphocytes # 0.9 10*3/uL (1.4-4.0); Lymphocytes % 6.8 % (21.2-54.2); Mean Corpuscular HGB Conc 29.7 GM/DL (32-36); Mean Corpuscular Volume 100.9 FL (87-102); Mean Platelet Volume 9.7 FL (9.6-12.0); Neutrophils % 87.3 % (38.7-73.9); Osmolality,Calculated 293.6 MOS/KG (273-304); Platelet Count 210 T/CUMM (130-400); Red Blood Count 3.44 MC/CUMM (3.8-5.5); Red Cell Distribution Width 16.8 % (9.3-17.3); Total Protein 6.1 G/DL (6.4-8.3); White Blood Count 13.1 T/CUMM (4-12)
[2018-11-10 06:08] LABS: Hemoglobin 10.3 GM/DL (14.0-18.0)
[2018-11-10 06:32] LABS: Band Neutrophils 7 % (0-10); Lymphocytes 8 % (20-55); Metamyelocytes 1 %; Platelet Estimate Adequate; Polychromasia Slight; Segmented Neutrophils 80 % (50-85); Total Cells Counted 100
[2018-11-10 07:00] VITALS: BP 104/62
== END 2018-11-10 05:35 | disposition expired | DRG 189 ==
LOC: EDUNIT# → N.ED 04:36 → N.EDINP 04:36 → OBSVTOIN 07:39 → SUATTDRO 07:39 → N.5E 08:26
PROVIDERS: ADMIT Internal Medicine; ATTEND Internal Medicine